=== PATIENT | female | born 1960 | race Caucasian/White ===

== ENCOUNTER → 2019-06-05 | Outpatient (CLI) | payer OTHER, SELFPAY ==
[2019-04-28 08:49] VITALS: BMI 36.9
[2019-06-05 18:03] LABS: Absolute Lymphocyte Count 2.96 X10^3/ul (0.83-4.51); Absolute Neutrophil Count 3.4 X10^3/uL (2.0-7.7); Basophil# 0.03 X10^3/uL; Basophil% 0.4 % (0-1); Eosinophil# 0.05 X10^3/uL; Eosinophils% 0.7 % (0-5); Hematocrit 44.6 % (37-47); Hemoglobin 14.7 g/dl (12.0-15.0); Lymphocyte # 2.96 X10^3/ul (4.0); Lymphocyte % 42.2 % (19-41); Mean Corpuscular Hgb 28.7 pg (27.0-32.0); Mean Corpuscular Volume 87.1 fL (81-99); Mean Platelet Vol. 10.4 fl (6.2-12.0); Monocyte% 8.5 % (0-10); Neutrophil # 3.38 X10^3/uL (2.7-7.7); Neutrophil % 48.2 % (47-70); Platelet Count 292 K/mm3 (150-450); RBC Distribution Width CV 14.1 % (11.6-14.6); RBC Distribution Width SD 44.9 fl (35.1-43.9); Red Blood Count 5.12 M/mm3 (4.2-5.4)
[2019-06-05 18:13] LABS: Anion Gap 6 (5-15); BUN 13 mg/dL (7-18); BUN/Creat Ratio 13.9 RATIO (10-20); Calcium,Total 9.1 mg/dL (8.5-10.1); Chloride 107 mmol/L (98-107); Creatinine, Serum 0.94 mg/dL (0.55-1.02); EST Glomerular Filtration Rate 65 mL/min (>60); Est Glom Filt Rate - Afr Amer 79 mL/min (>60); Glucose 85 mg/dL (74-106); Sodium Level 138 mmol/L (136-145); T4 Free Direct 1.69 ng/dL (0.76-1.46); Thyroid Stim Hormone (TSH) 1.88 uIU/mL (0.358-3.74)
[2019-06-05 18:28] LABS: POSITIVE COUNT NO; POSITIVE DIFFERENTIAL NO; POSITIVE MORPHOLOGY NO
== END | disposition home or self-care (01) ==
LOC: BFHLAB 16:23
PROVIDERS: PCP Family Medicine; Visit Provider Family Medicine
DX: R61 Generalized hyperhidrosis (principal); R53.83 Other fatigue
CPT/HCPCS: 36415; 80048; 84439; 84443; 85025

== ENCOUNTER → 2019-07-11 08:13 | Outpatient (CLI) | payer OTHER, SELFPAY ==
[2019-04-28 08:49] VITALS: BMI 36.9
--- NOTE | 2019-07-11 08:14 | RAD_ITS ---
STUDY: X-RAY - LEFT KNEE REASON FOR EXAM: Knee pain, no trauma. TECHNIQUE: 4 view(s) of the knee. COMPARISON: Radiographs 03/30/2016. FINDINGS: Normal visualized distal femur. Normal visualized proximal tibia and fibula. Normal proximal tibiofibular articulation. There are marginal osteophytes and severe joint space loss of the medial femorotibial compartment, increased since the prior study. There are marginal osteophytes without joint space narrowing of the lateral femorotibial compartment. There is severe joint space narrowing of the patellofemoral articulation as on the prior study. There is an intra-articular body in the suprapatellar recess. RAD/Knee 4 or More Views IMPRESSION: Arthrosis of the medial femorotibial and patellofemoral compartments. Intra-articular body. Electronically Signed: Herberth Lucas MD at 10:45 EDT Tel , Service support ,
== END ==
PROVIDERS: Family Provider Family Medicine; PCP Family Medicine; Referring Provider Orthopaedic Surgery; Visit Provider Orthopaedic Surgery
DX: M17.0 Bilateral primary osteoarthritis of knee (principal)
CPT/HCPCS: 73564

== ENCOUNTER → 2019-07-28 09:27 | Outpatient (CLI) | payer OTHER, SELFPAY ==
[2019-04-28 08:49] VITALS: BMI 36.9
[2019-07-11 08:31] VITALS: BMI 36.9
[2019-07-28 12:56] LABS: Free T3 2.9 pg/mL (2.18-3.98); T4 Free Direct 2.14 ng/dL (0.76-1.46); Thyroid Stim Hormone (TSH) 1.67 uIU/mL (0.358-3.74)
[2019-07-31 14:07] LABS: Thyroid Peroxidase AB 10 IU/mL (0-34)
[2019-08-01 10:02] LABS: Thyroglobulin Antibody < 1.0 IU/mL (0.0-0.9)
== END ==
PROVIDERS: Family Provider Family Medicine; PCP Family Medicine; Visit Provider Family Medicine
DX: E05.90 Thyrotoxicosis, unspecified without thyrotoxic crisis or storm (principal)
CPT/HCPCS: 36415; 84439; 84443; 84481; 86376; 86800

== ENCOUNTER → 2019-09-25 08:03 | Outpatient (CLI) | payer OTHER, SELFPAY ==
[2019-07-11 08:31] VITALS: BMI 36.9
[2019-09-01 07:56] VITALS: BMI 36.9
[2019-09-25 12:22] LABS: Free T3 2.7 pg/mL (2.18-3.98); Thyroid Stim Hormone (TSH) 1.85 uIU/mL (0.358-3.74)
== END ==
PROVIDERS: Family Provider Family Medicine; PCP Family Medicine; Visit Provider Family Medicine
DX: E05.90 Thyrotoxicosis, unspecified without thyrotoxic crisis or storm (principal); R61 Generalized hyperhidrosis; R53.83 Other fatigue
CPT/HCPCS: 36415; 84439; 84443; 84481

== ENCOUNTER 2020-11-23 13:42 | Emergency (ER) | payer OTHER, SELFPAY ==
[2020-04-23 14:28] VITALS: BMI 36.9
[2020-11-23 13:43] VITALS: BP 182/85; PULSE 104; RESP 20; TEMP 36.8; O2SAT 96; BMI 37.0
--- NOTE | 2020-11-23 13:53 | EKG12_ITS ---
Test Reason : CP Blood Pressure : / mmHG Vent. Rate : 088 BPM Atrial Rate : 088 BPM P-R Int : 140 ms QRS Dur : 088 ms QT Int : 364 ms P-R-T Axes : 028 -05 033 degrees QTc Int : 440 ms Normal sinus rhythm Normal ECG Confirmed by VIRGILIO BIRD, SARAH ([id number]), television news video editor ZULEMA AGUIRRE ([id number]) on 11/25/2020 8:46:54 AM Referred By: TELMA/KATE Confirmed By:SARAH POOLE MD
--- NOTE | 2020-11-23 13:54 | ED.VIS.GEN ---
History of Present Illness Chief Complaint: Chest Pain Informant: Patient Onset: Today Current Severity: Mild Maximum Severity: Moderate Narrative: Patient presents with right-sided pleuritic chest pain that she noted this morning. She states when she went to bed last night she felt fine. She does have a history of PE approximate 10 years ago. She states at that time she was 1 month out from surgery and they attributed the clot to her recent operative procedure. She has been off anticoagulants for the last 9 years without any difficulty. She denies any significant leg pain or swelling. She denies cough or congestion. - Past Medical History (1) Pulmonary embolism Status: Chronic Past Medical History - Allergies and Home Meds Allergies/Adverse Reactions: Allergies No Known Allergies Allergy (Verified 11/23/20 13:42) Primary Care Physician: Ned Maynard MD [Primary Care Provider] - Smoking Status: Never smoker Review of Systems General: Denies: Chills, Fever Eyes: Denies: Visual changes - bilaterally ENT: Denies: Bilateral ear pain Cardiovascular: Reports: Chest pain Respiratory: Denies: Dyspnea - Pain with deep breath, but does not feel short of breath. Gastrointestinal: Denies: Abdominal pain, Nausea, Vomiting, Diarrhea Musculoskeletal: Denies: Extremity Pain Skin: Denies: Rash Hematologic: Denies: Easy bruising, Easy bleeding Allergy: Denies: Uticaria Physical Exam Vital Signs/Narrative: Vital Signs Temp Pulse Resp BP Pulse Ox 11/23/20 13:43 98.2 F 104 H 20 H 182/85 H 96 Inital Vital Signs reviewed: Yes General: Well nourished, Well developed Head: Normocephalic ENT: Moist mucous membranes Neck: Supple Cardiovascular: Regular rate, Regular rhythm Respiratory: No distress, CTA bilaterally Abdomen: Soft, Nontender Back: Nontender Extremities: Nontender Skin: Normal color, No rash Neurological: Alert, Oriented x3, Normal Strength, Normal Sensation Psychological: Normal affect Diagnostic/Tx/Re-eval Chest X-Ray - ED: 1 View, Read by ED Physician, Chronic Changes Impressions Chest X-Ray 11/23/20 14:15 IMPRESSION: Nonacute portable x-ray examination of the chest. Electronically Signed: Imer Cooley MD ([place]) at 14:32 EST , Service support , Chest CTA 11/23/20 15:05 IMPRESSION: 1. No central or segmental pulmonary embolism. Electronically Signed: Imer Cooley MD (Brooks) at 15:49 EST , Service support , 11/23/20 14:15 Chest 1 View (Portable) [RAD] Stat 11/23/20 15:05 CTA Chest W/WO Contrast [CT] Stat Laboratory Results 11/23/20 11/23/20 11/23/20 14:05 14:05 14:05 WBC 7.4 RBC 4.76 Hgb 13.8 Hct 42.6 MCV 89.5 MCH 29.0 MCHC 32.4 RDW Std Deviation 44.4 H RDW Coeff of Tammie 13.5 Plt Count 302 MPV 9.8 Immature Gran % (Auto) 0.500 Neut % (Auto) 61.7 Lymph % (Auto) 29.3 [place] % (Auto) 6.6 Eos % (Auto) 1.2 Baso % (Auto) 0.7 Absolute Neuts (auto) 4.6 Absolute Lymphs (auto) 2.18 Nucleated RBC % 0 D-Dimer Quant (PE/DVT) 0.60 H* Sodium 144 Potassium 4.0 Chloride 112 H Carbon Dioxide 28.0 Anion Gap 4 L BUN 18 Creatinine 0.92 Estim Creat Clear Calc 59.98 Est GFR (MDRD) Af Amer 81 Est GFR (MDRD) Non-Af 67 BUN/Creatinine Ratio 19.6 Glucose 110 H Calcium 8.5 Troponin I < 0.015 - EKG Initial EKG Interpretation: Sinus Rhythm - Sinus 88 with no acute ischemia. - Medical Decision Making Patient was given 3 additional baby aspirin here. She had taken 1 this morning prior to arrival. 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 Vital signs been stable. Portable chest x-ray per my interpretation reveals chronic changes but no acute findings. EKG is unremarkable. Blood work is significant only for a mildly elevated D-dimer is 0.60. In light of this she was sent for a CTA of the chest. This returns unremarkable. Patient is reassured with the findings. Chest pain would be very atypical for cardiac etiology. She will try anti-inflammatories and monitor her symptoms. If she worsens in any way she was advised to return for repeat evaluation. She voices understanding and agreement. ED Disposition - Plan for ED Patient: Disposition: Home or Assisted Living Diagnosis: Pleuritic chest pain Instructions: ED Chest Pain, Noncardiac Referrals: Ned Maynard MD [Primary Care Provider] - 1 Week
[2020-11-23] MEDS: Aspirin 81 MG TAB.CHEW 243 MG PO (14:02)
[2020-11-23 14:08] VITALS: O2SAT 97
--- NOTE | 2020-11-23 14:15 | RAD_ITS ---
STUDY: X-RAY CHEST REASON FOR EXAM: Female, 60 years old. chest pain, acute onset. TECHNIQUE: AP COMPARISON: None. FINDINGS: EKG leads project over the chest. The lungs are clear and expanded. There is no demonstrated pleural abnormality. Normal size heart. Normal mediastinum and franc. Normal visualized pulmonary arteries. Normal visualized aortic arch and descending thoracic aorta. Normal visualized thoracic spine. Normal visualized ribs, clavicles, and shoulders. There is no demonstrated abnormality of the visualized soft tissue structures of the upper abdomen. RAD/Chest 1 View (Portable) IMPRESSION: Nonacute portable x-ray examination of the chest. Electronically Signed: Imer Cooley MD ([place]) at 14:32 EST , Service support ,
[2020-11-23 14:22] VITALS: PULSE 88; RESP 20; O2SAT 96
[2020-11-23 14:30] LABS: Absolute Lymphocyte Count 2.18 X10^3/uL (0.83-4.51); Absolute Neutrophil Count 4.6 X10^3/uL (2.0-7.7); Basophil# 0.05 X10^3/uL; Basophil% 0.7 % (0-1); Eosinophil# 0.09 X10^3/uL; Eosinophils% 1.2 % (0-5); Hematocrit 42.6 % (37-47); Hemoglobin 13.8 g/dL (12.0-15.0); Lymphocyte # 2.18 X10^3/ul (4.0); Lymphocyte % 29.3 % (19-41); Mean Corp Hgb Conc 32.4 g/dL (32-36); Mean Corpuscular Volume 89.5 fL (81-99); Mean Platelet Vol. 9.8 fl (6.2-12.0); Monocyte# 0.49 X10^3/uL; Monocyte% 6.6 % (0-10); NRBC Flagged by Analyzer 0 % (0-5); Neutrophil # 4.58 X10^3/uL (2.7-7.7); Neutrophil % 61.7 % (47-70); Platelet Count 302 K/mm3 (150-450); RBC Distribution Width CV 13.5 % (11.6-14.6); RBC Distribution Width SD 44.4 fl (35.1-43.9); Red Blood Count 4.76 M/mm3 (4.2-5.4); White Blood Count 7.4 K/mm3 (4.4-11.0)
[2020-11-23 14:35] LABS: Anion Gap 4 (5-15); BUN 18 mg/dL (7-18); BUN/Creat Ratio 19.6 RATIO (10-20); Calcium,Total 8.5 mg/dL (8.5-10.1); Chloride 112 mmol/L (98-107); Creatinine, Serum 0.92 mg/dL (0.55-1.02); EST Glomerular Filtration Rate 67 mL/min (>60); Est Glom Filt Rate - Afr Amer 81 mL/min (>60); Estimated Creatinine Clearance 59.98 ml/min; Glucose 110 mg/dL (74-106); Sodium Level 144 mmol/L (136-145)
--- NOTE | 2020-11-23 15:05 | CT_ITS ---
STUDY: CTA CHEST REASON FOR EXAM: Female, 60 years old. PLEURITIC CP WORSE WITH DEEP BREATHING, HX-PE RADIATION DOSAGE (If Supplied By Facility): CTDIvol = ( 13.75 ) mGy, DLP = ( 526.51 ) mGycm TECHNIQUE: The examination was performed with the intravenous administration of IV 100mL Isovue-370. Post-processing of the angiographic images was performed, with multiplanar reformation and 3D reconstruction. Individualized dose optimization techniques were used for this CT. COMPARISON: None. FINDINGS: Normal enhancement of the main pulmonary artery and right and left pulmonary arteries. Normal enhancement of the bilateral peripheral pulmonary arteries. There is no demonstrated pulmonary embolism. Normal thoracic aorta and visualized great vessels. There is no demonstrated aortic dissection. Normal heart and pericardium. Normal mediastinum. Normal hilar regions. Normal visualized trachea and bronchi. The lungs are well expanded. There are bandlike parenchymal changes most consistent with atelectasis of the bilateral lungs. Normal pleura. Normal chest wall structures. There are degenerative changes of thoracic spine. There is a small hiatal hernia. CT/CTA Chest W/WO Contrast IMPRESSION: 1. No central or segmental pulmonary embolism. Electronically Signed: Imer Cooley MD ([place]) at 15:49 EST , Service support ,
[2020-11-23 15:50] VITALS: BP 123/83; PULSE 75; RESP 17; O2SAT 98
[2020-11-23 16:05] VITALS: RESP 17
== END 2020-11-23 16:06 | disposition home or self-care (01) ==
PROVIDERS: Emergency Provider Emergency Medicine; PCP Family Medicine
DX: R07.81 Pleurodynia (principal); Z86.711 Personal history of pulmonary embolism; Z79.82 Long term (current) use of aspirin
CPT/HCPCS: 71045; 71275; 80048; 84484; 85025; 85379; 93005; 99285; Q9967; A4216

== ENCOUNTER 2020-12-05 15:02 | Inpatient (IN) | payer OTHER, SELFPAY ==
[2020-11-27 10:18] VITALS: BMI 36.2
[2020-12-05] VITALS (13 sets, daily range): BP systolic 135–160; BP diastolic 79–97; PULSE 85–134; RESP 18–29; TEMP 36.8–37.6; O2SAT 93–96; BMI 35.2; BMI 34.2; BMI 34.3
--- NOTE | 2020-12-05 15:16 | EKG12_ITS ---
Test Reason : TACHYCARDIA Blood Pressure : / mmHG Vent. Rate : 116 BPM Atrial Rate : 116 BPM P-R Int : 116 ms QRS Dur : 088 ms QT Int : 340 ms P-R-T Axes : 037 -34 058 degrees QTc Int : 472 ms Sinus tachycardia Left axis deviation Nonspecific ST abnormality Abnormal ECG Confirmed by VIRGILIO BIRD, SARAH ([id number]), managing editor YOSELIN BLANK ([id number]) on 12/11/2020 6:28:19 AM Referred By: YENNY Confirmed By:SARAH POOLE MD
--- NOTE | 2020-12-05 15:23 | ED.VIS.GEN ---
History of Present Illness Chief Complaint: Nausea/Vomiting Informant: Patient Onset: Days - 3 Narrative: Patient with nausea and vomiting for the past 3 days has been persistent. No hematemesis. Least 4 episodes today. Patient reports had Covid symptoms 10 days ago with low-grade fever chills and myalgias and slight cough. She reports lost taste and smell for a day and a half however that return. Slight diarrhea that has resolved. Last Tylenol use was 2 days ago. Denies any current cough or dyspnea symptoms. History of remote PE in the past currently on aspirin. Denies chest or abdominal pain. Denies any allergies. States has mild dysuria over the last 3 days. Denies any history of congestive heart failure. Prior similar symptoms: No Past Medical History - Allergies and Home Meds Allergies/Adverse Reactions: Allergies No Known Allergies Allergy (Verified 12/05/20 15:02) Past Medical History: - - Pulmonary embolism, Covid virus infection Surgical History: arthroscopy, knee, hysterectomy Smoking Status: Former smoker Review of Systems General: Denies: Chills, Fever, Sweats Eyes: Denies: Visual changes - bilaterally, Diplopia ENT: Denies: Rhinorrhea, Sore throat Cardiovascular: Denies: Chest pain, Palpitations Respiratory: Denies: Dyspnea, Cough, Dyspnea on exertion Gastrointestinal: Reports: Nausea, Vomiting. Denies: Abdominal pain, Diarrhea, Melena, Hematochezia Genitourinary: Denies: Dysuria, Hematuria, Frequency Musculoskeletal: Denies: Back pain, Extremity Pain Skin: Denies: Rash, Wounds Neurological: Denies: Headache, Weakness, Numbness Physical Exam Vital Signs/Narrative: Vital Signs Temp Pulse Resp BP Pulse Ox 12/05/20 15:06 98.2 F 132 H 23 H 150/97 H 93 12/05/20 15:03 98.2 F 132 H 29 H 150/97 H 93 General: Well nourished, Well developed, No Acute Distress Head: Normocephalic, Atraumatic Eyes: Perrl, EOMI ENT: No rhinorrhea, Dry mucous membranes Neck: Supple, Nontender Cardiovascular: Regular rhythm, No murmurs, Tachycardia Respiratory: No distress, CTA bilaterally, Chest nontender Abdomen: Soft, Nontender, Nondistended, Normal bowel sounds, - - Negative Membreno's McBurney's tenderness, no guarding or rebound. Back: Nontender, Normal Inspection Extremities: Nontender, No edema Skin: Normal color, No rash Neurological: Alert, Oriented x3, Cranial nerves II-XII grossly intact, Normal Strength, Normal Sensation Psychological: Normal affect, Normal Mood Diagnostic/Tx/Re-eval Clinical Impression(s) from Imaging Studies Chest X-Ray 12/05/20 17:05 IMPRESSION: 1. Interval appearance of mild patchy consolidation of the bilateral lower lobes. A trace left pleural effusion is also present. Electronically Signed: Evan Wade MD at 17:34 EST , Service support , Abnormal Lab Results 12/05/20 12/05/20 12/05/20 15:17 15:17 15:17 WBC 21.4 H RBC 5.47 H Hgb 15.8 H Hct 46.9 MCV 85.7 MCH 28.9 MCHC 33.7 RDW Std Deviation 43.4 RDW Coeff of Tammie 13.6 Plt Count 407 MPV 10.5 Immature Gran % (Auto) 1.300 H Neut % (Auto) 82.8 H Lymph % (Auto) 6.4 L [place] % (Auto) 4.7 Eos % (Auto) 4.5 Baso % (Auto) 0.3 Absolute Neuts (auto) 17.7 H Absolute Lymphs (auto) 1.36 Nucleated RBC % 0 Differential Comment SCANNED PT 13.0 INR 1.0 APTT 27.0 Sodium 138 Potassium 2.9 L Chloride 98 Carbon Dioxide 30.0 Anion Gap 10 BUN 37 H Creatinine 1.13 H Estim Creat Clear Calc 48.83 Est GFR (MDRD) Af Amer 63 Est GFR (MDRD) Non-Af 52 L BUN/Creatinine Ratio 32.7 H Glucose 113 H Lactic Acid Calcium 9.5 Magnesium Total Bilirubin 0.90 AST 38 H ALT 37 Alkaline Phosphatase 82 Total Protein 8.3 H Albumin 3.4 Globulin 4.9 H Albumin/Globulin Ratio 0.7 L 12/05/20 12/05/20 15:17 15:17 WBC RBC Hgb Hct MCV MCH MCHC RDW Std Deviation RDW Coeff of Tammie Plt Count MPV Immature Gran % (Auto) Neut % (Auto) Lymph % (Auto) [place] % (Auto) Eos % (Auto) Baso % (Auto) Absolute Neuts (auto) Absolute Lymphs (auto) Nucleated RBC % Differential Comment PT INR APTT Sodium Potassium Chloride Carbon Dioxide Anion Gap BUN Creatinine Estim Creat Clear Calc Est GFR (MDRD) Af Amer Est GFR (MDRD) Non-Af BUN/Creatinine Ratio Glucose Lactic Acid 2.9 H* Calcium Magnesium 2.8 H Total Bilirubin AST ALT Alkaline Phosphatase Total Protein Albumin Globulin Albumin/Globulin Ratio - EKG Initial EKG Interpretation: Sinus Rhythm - Sinus tachycardia rate of 116, no ST or T wave changes. - Medical Decision Making Patient tachycardic on arrival dry mucosal membranes. Sepsis protocol initiated due to dysuria symptoms with tachycardia. EKG is sinus rhythm. She is given 2 L of fluid heart rate of 134 on the monitor. She has no heart failure history. Work-up white count of 21 there is some lymphopenia. Known Covid infection diagnosed 8 years ago with 10 days of symptoms. She was 93% on room air on arrival placed on oxygen by nursing. 1 view chest x-ray reviewed by myself and read by radiology concerns for new bilateral lower lobe infiltrates. Clinically she states her cough is improving. Lactic acid returned at 2.9. She meets severe sepsis criteria with fluids running her heart rate significantly improved blood pressure stable. Pending urine, she does have dysuria, with her white count severe sepsis she started on Zosyn. Creatinine 1.13 her potassium was 2.9 sent for a magnesium level she is able to take oral potassium. Patient meeting severe sepsis I spoke with hospitalist, Dr. Call, will start Decadron due to slightly decreased pulse ox with known Covid infection. We will add a D-dimer for further evaluation. Will admit to Covid floor for further management. ED Disposition - Plan for ED Patient: Disposition: Acute Care [facility] Diagnosis: Severe sepsis, COVID-19 virus infection, Hypokalemia
[2020-12-05 15:45] LABS: Absolute Lymphocyte Count 1.36 X10^3/uL (0.83-4.51); Absolute Neutrophil Count 17.7 X10^3/uL (2.0-7.7); Basophil# 0.06 X10^3/uL; Basophil% 0.3 % (0-1); Eosinophil# 0.96 X10^3/uL; Eosinophils% 4.5 % (0-5); Hematocrit 46.9 % (37-47); Hemoglobin 15.8 g/dL (12.0-15.0); Lymphocyte # 1.36 X10^3/ul (4.0); Lymphocyte % 6.4 % (19-41); Mean Corp Hgb Conc 33.7 g/dL (32-36); Mean Corpuscular Hgb 28.9 pg (27.0-32.0); Mean Corpuscular Volume 85.7 fL (81-99); Mean Platelet Vol. 10.5 fl (6.2-12.0); Monocyte% 4.7 % (0-10); NRBC Flagged by Analyzer 0 % (0-5); Neutrophil # 17.71 X10^3/uL (2.7-7.7); Neutrophil % 82.8 % (47-70); POSITIVE MORPHOLOGY YES; Platelet Count 407 K/mm3 (150-450); RBC Distribution Width CV 13.6 % (11.6-14.6); RBC Distribution Width SD 43.4 fl (35.1-43.9); Red Blood Count 5.47 M/mm3 (4.2-5.4); White Blood Count 21.4 K/mm3 (4.4-11.0)
[2020-12-05 15:49] LABS: Differential Indicated SCAN CRITERIA MET
[2020-12-05] MEDS: 0.9% Normal Saline 1,000 ML 999 ML IV ×2 (15:57→17:27)
[2020-12-05] MEDS: Ondansetron 4 MG/2 ML Vial IV (15:57)
[2020-12-05 16:02] LABS: ALB/GLOB Ratio 0.7 RATIO (0.9-2.4); AST(SGOT) 38 U/L (15-37); Alanine Aminotransfer ALT/SGPT 37 U/L (13-56); Albumin, Serum 3.4 g/dL (3.2-5.0); Alkaline Phosphatase 82 U/L (45-117); Anion Gap 10 (5-15); BUN 37 mg/dL (7-18); BUN/Creat Ratio 32.7 RATIO (10-20); Calcium,Total 9.5 mg/dL (8.5-10.1); Chloride 98 mmol/L (98-107); Creatinine, Serum 1.13 mg/dL (0.55-1.02); EST Glomerular Filtration Rate 52 mL/min (>60); Est Glom Filt Rate - Afr Amer 63 mL/min (>60); Estimated Creatinine Clearance 48.83 ml/min; Globulin 4.9 g/dL (2.2-4.2); Glucose 113 mg/dL (74-106); Potassium 2.9 mmol/L (3.5-5.1); Protein, Total 8.3 g/dL (6.4-8.2); Sodium Level 138 mmol/L (136-145)
[2020-12-05 16:29] LABS: Differential Comment SCANNED
[2020-12-05 16:30] LABS: Lactic Acid 2.9 mmol/L (0.4-1.9)
--- NOTE | 2020-12-05 17:05 | RAD_ITS ---
STUDY: X-RAY CHEST REASON FOR EXAM: Female, 60 years old. PT C/O INCREASING NAUSEA AND VOMITING WITH SYMPTOMS STARTING ONE 11/25/20, DIAGNOSED WITH COVID 11/27/20 TECHNIQUE: Single AP portable view of the chest. COMPARISON: November 23, 2020 FINDINGS: Interval appearance of mild patchy consolidation of the bilateral lower lobes. A trace left pleural effusion is also present. Normal size heart. Normal mediastinum and franc. Normal visualized pulmonary arteries. Normal visualized aortic arch and descending thoracic aorta. Normal visualized thoracic spine. Normal visualized ribs, clavicles, and shoulders. There is no demonstrated abnormality of the visualized soft tissue structures of the upper abdomen. RAD/Chest 1 View (Portable) IMPRESSION: 1. Interval appearance of mild patchy consolidation of the bilateral lower lobes. A trace left pleural effusion is also present. Electronically Signed: Evan Wade MD at 17:34 EST , Service support ,
[2020-12-05 17:43] LABS: Magnesium 2.8 mg/dL (1.6-2.6)
--- NOTE | 2020-12-05 18:37 | HP.PCM_ITS ---
Problem List (1) Hypoxia Status: Acute (2) Pneumonia due to COVID-19 virus Status: Acute (3) History of pulmonary embolism Status: Chronic (4) Hypertension Status: Chronic Qualifiers: Hypertension type: essential hypertension Qualified Code(s): I10 - Essential (primary) hypertension (5) Chronic kidney disease (CKD), stage III (moderate) Status: Chronic Qualifiers: Chronic kidney disease stage 3 subtype: unspecified whether 3a or 3b Qualified Code(s): N18.30 - Chronic kidney disease, stage 3 unspecified History of Present Illness Date of Admission: 12/05/20 Chief Complaint: COVID +, intractable N/V The patient is a 60 y/o F w/ PMHx: CKD stage III, Hx PE, HTN who presents to the [facility] ED on 12/05/20 with history of recent Covid diagnosis with approximately 10 days prior onset of low-grade fevers, chills, myalgias, mild cough, alteration to sense of taste and smell, loose stools with now onset significant and persistent nausea and emesis over the last 3 days with no associated abdominal pain but complaining of mild dysuria prompting eventual ED presentation. Patient denies any specific cough or dyspnea symptoms at this time. Patient does state that her , daughter and her grandson who is 8 years old and has a history of being a are also mildly symptomatic currently and strongly encouraged early discussions with her primary caregivers especially with her grandson given his preemie history. Work-up in the ED included T 98.2, heart rate 132, BP 150/97, respiratory rate 29, 93% on room air, CBC with WBC 21.4, hemoglobin 15.8, platelet 407 with left shift, unremarkable coags, CMP with potassium 2.9, BUN/creatinine 37/1.13, glucose 113, lactic acid 2.9, total bilirubin 0.90, AST/LT 38/37, alk phos 82, blood culture x2 pending per ED, chest x-ray interval appearance of mild patchy consolidation bilateral lower lobes with trace left pleural effusion, EKG ST without acute evidence of ischemia, UA requested per ED. Past Medical History Past Medical History (Chronic Problems): Chronic Problems (Last Reviewed 11/01/17 @ 10:48 by Judd Banegas) Pulmonary embolism (Chronic) History of pulmonary embolism (Chronic) Hypertension (Chronic) Chronic kidney disease (CKD), stage III (moderate) (Chronic) Allergies No Known Allergies Allergy (Verified 12/05/20 15:02) Home Medications: Ambulatory Orders Medication Instructions Recorded Ascorbic Acid [Vitamin C] 1,000 mg PO DAILY 07/16/17 Aspirin E.C. 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 Smoking Status: Never smoker - Patient denies any tobacco use history. Tobacco Use: Non-smoker Alcohol: None Drugs: None - *Family History Maternal History Items: Cancer - Maternal family history of breast cancer., Diabetes, Heart Disease Paternal History Items: Heart Disease Review of Systems Constitutional: Reports: Anorexia, Chills, Fever, Malaise, Weakness, Fatigue. Denies: Weight Change HEENT: Reports: Head Aches, - - Alteration to sense of taste/smell.. Denies: Sinus Congestion, Sinus Drainage Cardiovascular: Denies: Chest Pain, Palpitations Respiratory: Denies: Cough, Shortness of Breath, Shortness of breath at rest, Shortness of breath upon exertion, Sputum production Gastrointestinal: Reports: Diarrhea, Nausea, Vomiting. Denies: Abdominal Pain Genitourinary: Reports: Dysuria Musculoskeletal: Reports: Joint Pain, Muscle pain. Denies: Joint Tenderness Skin: Denies: Rash, Wounds Neurological: Denies: Numbness, Tingling, Focal weakness Psychiatric: Denies: Anxiety, Depression, Homicidal Ideations, Suicidal Ideations Hematologic/ Lymphatic: Denies: Easy Bruising, Easy Bleeding VTE Information - Inpt Only VTE Present on Admission: No VTE Mechan Device Prophylaxis: SCD's VTE Pharm Prophylaxis ordered?: Yes Patient Problems: Active and Suspected Problems (Last Reviewed 11/01/17 @ 10:48 by Judd Banegas) Severe sepsis (Acute) COVID-19 virus infection (Acute) Hypokalemia (Acute) Hypoxia (Acute) Pneumonia due to COVID-19 virus (Acute) Subjective: Patient seated upright in the ED bed, fatigued appearing, oxygenation remains low 90s, heart rate is improved following 2 L normal saline. Objective: Physical Examination: General: awake, alert, oriented x 3 and cooperative, seated upright in the ED bed, fatigued and ill-appearing. Skin: normal color, turgor, no icterus, cyanosis. HEENT: AT/NC, EOMI, PERRLA, dry MM, no carotid bruits or JVD noted. Lungs: Diminished breath sounds throughout, greater bases, moderate effort, no evidence of distress, no rales, ronchi or wheezing. Heart: Improved, previously significantly tachycardic, regular rhythm; no gallop, rub audible. Abdomen: soft, obese, NTTP, ND, normal BS, no HSM. Extremities: no cyanosis, clubbing, or edema. Neurological: patient awake, alert, oriented as noted; cognitive function intact; pupils equally reactive to light and accomodation; cranial nerves II-XII grossly normal, moving all 4 extremities, no focal deficits, strength moderately to severely globally decreased secondary to acute presentation. Psychiatric: affect appears fatigued, ill-appearing, no acute evidence of depressive or anxiety feelings. - Physical Exam Vitals/I&O's: Vital Signs Temp Pulse Resp BP Pulse Ox 98.9 F 87 21 H 160/85 H 96 12/05/20 17:16 12/05/20 17:06 12/05/20 17:06 12/05/20 17:06 12/05/20 17:06 Oxygen Flow Rate (L/min) 1 Oxygen Delivery Method Nasal Cannula Weight: 211 lb 10.3 oz Body Mass Index (BMI) 35.2 Intake and Output for Last 24 Hours 12/03/20 12/04/20 12/05/20 23:59 23:59 23:59 Intake Total 1000 / 1000 Balance 1000 / 1000 Laboratory Results 12/05/20 15:17: WBC 21.4 H, RBC 5.47 H, Hgb 15.8 H, Hct 46.9, MCV 85.7, MCH 28.9, MCHC 33.7, RDW Std Deviation 43.4, RDW Coeff of Tammie 13.6, Plt Count 407, MPV 10.5, Immature Gran % (Auto) 1.300 H, Neut % (Auto) 82.8 H, Lymph % (Auto) 6.4 L, [place] % (Auto) 4.7, Eos % (Auto) 4.5, Baso % (Auto) 0.3, Absolute Neuts (auto) 17.7 H, Absolute Lymphs (auto) 1.36, Nucleated RBC % 0, Differential Comment SCANNED 12/05/20 15:17: PT 13.0, INR 1.0, APTT 27.0 12/05/20 15:17: Sodium 138, Potassium 2.9 L, Chloride 98, Carbon Dioxide 30.0, Anion Gap 10, BUN 37 H, Creatinine 1.13 H, Estim Creat Clear Calc 48.83, Est GFR (MDRD) Af Amer 63, Est GFR (MDRD) Non-Af 52 L, BUN/Creatinine Ratio 32.7 H, Glucose 113 H, Calcium 9.5, Total Bilirubin 0.90, AST 38 H, ALT 37, Alkaline Phosphatase 82, Total Protein 8.3 H, Albumin 3.4, Globulin 4.9 H, Albumin /Globulin Ratio 0.7 L 12/05/20 15:17: Lactic Acid 2.9 H* 12/05/20 15:17: Magnesium 2.8 H Current Medications Piperacillin Sod/Tazobactam (Sod 3.375 gm/ Sodium Chloride) 50 mls @ 100 mls/hr IV X1 ONE Stop: 12/05/20 18:54 Assessment/Plan All Active Problems (Last Reviewed 11/01/17 @ 10:48 by Judd Banegas) Severe sepsis (Acute) COVID-19 virus infection (Acute) Hypokalemia (Acute) Hypoxia (Acute) Pneumonia due to COVID-19 virus (Acute) Screen for colon cancer (Acute) The patient is a 60 y/o F w/ PMHx: CKD stage III, Hx PE, HTN who presents to the [facility] ED on 12/05/20 with history of recent Covid diagnosis with approximately 10 days prior onset of low-grade fevers, chills, myalgias, mild cough, alteration to sense of taste and smell, loose stools with now onset significant and persistent nausea and emesis over the last 3 days with no associated abdominal pain but complaining of mild dysuria prompting eventual ED presentation. 1. Acute Severe Sepsis secondary to Acute Hypoxia secondary to BL Pneumonia secondary to Acute Viral Syndrome, COVID-19 with concurrent intractable nausea and emesis and Possible Acute UTI: Will admit to the COVID unit, will maintain on oxygen with wean as tolerated to room air, PRN albuterol, HOB, ED administered Zosyn which will be continued but de-escalate once UCx results, IS parameters w/ pending sputum cultures, respiratory viral panel and urine antigens, will obtain procalcitonin, CRP, CPK, Ferritin, LDH, trop, BNP, D- dimer, continue supportive care including q 2 hour turning including prone given no prone bed availability and judicious hydration, closely monitor for worsening status for ARDS and multiorgan failure, consult Infectious disease, initiate IV Decadron 6 mg daily x 10 doses, initiate Remdesivir given worsening presentation but defer to discretion of ID, trend LA per facility protocol, pending urinalysis per ED and in the interim will maintain on Rocephin therapy but de- escalate off if unremarkable, ED dosed with Zosyn. 2. Hypokalemia: Admission K+ 2.9, magnesium level requested, supplementation given, repeat level in AM. 3. History of pulmonary embolism: Patient only on aspirin therapy currently, given acute presentation with high risk for VTE given #1 D-dimer requested, would obtain CTPA if appropriate. 4. Chronic Kidney Disease Stage III: Admission BUN/Cr 37/1.13, baseline renal function 0.9, repeat BMP in AM. 5. Hypertension: Continue home regimen including clonidine with hold parameters, PRN hydralazine. 6. DVT Prophylaxis: SCDs, therapeutic lovenox pending further evaluation given high risk for clots and prior history. 7. CODE status: Patient does not have healthcare power of repossession agent nor living will set up. Discussed concept of setting these up and purpose to do so. Patient is interested and referred her discuss these items with case management/social work. Given acute presentation discussed CODE status at length including difference between FULL code, DNR-CCA and DNR-CC status. Following discussions about the differences in these status, requested Full Code status. Advanced Care Planning Face to Face Time: 16 minutes. Inpatient E&M: 73209 Init Hosp L3 Procedures: 25044 Advncd Care Plan 30 Min
[2020-12-05] MEDS: dexAMETHasone 4 MG/ML Vial 6 MG IV (18:58)
[2020-12-05 19:17] LABS: Bacteria 0 SEEN /hpf (None Seen); Mucous, Urine 0 SEEN /hpf (<or=2+); White Blood Cells 0 SEEN /hpf (0-5)
[2020-12-05 19:31] LABS: Reflex Lactate? Y
[2020-12-05 20:00] LABS: D-Dimer Quantitative (DVT/PE) 3.34 FEU/ug/m (0.27-0.49)
[2020-12-05 20:07] LABS: Color, Urine Yellow (Yellow); Glucose, Dipstick Normal (Normal); Leukocyte Esterase-Dipstick Negative /ul (Negative); Nitrite-Dipstick Negative (Negative); Occult Blood-Urine 50 /ul (Negative); Protein-Dipstick 100 mg/dl (Negative); Urine Bilirubin Dipstick Negative (Negative); Urine Clarity Sl. Cloudy (Clear); Urine Urobilinogen 1 mg/dl (Normal)
[2020-12-05 20:15] LABS: BNP,B-Type NATRIURETIC PEPTIDE 12.2 pg/mL (0-100)
--- NOTE | 2020-12-05 20:15 | CT_ITS ---
STUDY: CTA CHEST REASON FOR EXAM: Female, 60 years old. ELEVATED D-DIMER, COVID, HYPOXIA, H/O PE. RADIATION DOSAGE (If Supplied By Facility): CTDIvol = ( 14.43 ) mGy, DLP = ( 651.06 ) mGycm TECHNIQUE: The examination was performed with the intravenous administration of IV-100 ML ISOVUE 370. Post-processing of the angiographic images was performed, with multiplanar reformation and 3D reconstruction. Individualized dose optimization techniques were used for this CT. COMPARISON: CTA of the chest dated November 23, 2020 FINDINGS: Mild scattered pneumonic infiltrates are present throughout both lungs, which were not present on the prior study. Normal enhancement of the main pulmonary artery and right and left pulmonary arteries. Normal enhancement of the bilateral peripheral pulmonary arteries. There is no demonstrated pulmonary embolism. Normal thoracic aorta and visualized great vessels. There is no demonstrated aortic dissection. Normal heart size and pericardium. Normal mediastinum. Normal hilar regions. Normal visualized trachea and bronchi. Normal pleura. Normal chest wall structures. Normal osseous structures. Normal visualized upper abdomen. CT/CTA Chest W/WO Contrast IMPRESSION: 1. Interval development of mild bilateral multifocal pneumonic infiltrates. 2. No demonstrated pulmonary embolism or arterial dissection. Electronically Signed: Evan Wade MD at 21:25 EST , Service support ,
[2020-12-05 20:16] LABS: Ferritin 798 ng/mL (8-252); LDH 396 U/L (84-246); Magnesium 2.7 mg/dL (1.6-2.6)
[2020-12-05 20:21] LABS: Procalcitonin 0.17 ng/mL (0.00-0.09)
[2020-12-05 20:23] LABS: Ketone-Dipstick 150 mg/dl (Negative)
[2020-12-05 20:25] LABS: Amorphous Sediment 1+ URATE; Red Blood Cells-Urine 5-10 SEEN /hpf (0-5); Squamous Epithelial Cells - UA 0-5 SEEN /hpf (5-10)
[2020-12-05 21:02] LABS: Lactic Acid 1.5 mmol/L (0.4-1.9)
[2020-12-05] MEDS: 0.9% Normal Saline 1,000 ML 100 ML IV (21:32)
[2020-12-05] MEDS: Ceftriaxone 1 GM/50 ML BAG IV (21:33)
[2020-12-05] MEDS: cloNIDine HCl 0.1 MG Tablet PO (21:37)
[2020-12-05] MEDS: Enoxaparin 100 MG/ML Syringe SC (21:37)
[2020-12-05] MEDS: BENZOCAINE/MENTHOL 1 LOZENGE MUCOUS MEM (22:04)
[2020-12-05] MEDS: Acetaminophen 325 MG Tablet 650 MG PO (22:04)
[2020-12-05 23:06] LABS: M R Staph aureus DNA By PCR Negative (Negative); Probe Check PASS; Specimen Processing Control PASS
[2020-12-06] VITALS (12 sets, daily range): BP systolic 113–149; BP diastolic 72–75; PULSE 60–80; RESP 18–20; TEMP 36.9–37.5; O2SAT 88–94
[2020-12-06 06:59] LABS: Absolute Lymphocyte Count 1.05 X10^3/uL (0.83-4.51); Absolute Neutrophil Count 15.2 X10^3/uL (2.0-7.7); Basophil# 0.03 X10^3/uL; Basophil% 0.2 % (0-1); Hemoglobin 12.5 g/dL (12.0-15.0); Lymphocyte # 1.05 X10^3/ul (4.0); Lymphocyte % 6.2 % (19-41); Mean Corp Hgb Conc 32.1 g/dL (32-36); Mean Corpuscular Hgb 28.5 pg (27.0-32.0); Mean Platelet Vol. 10.6 fl (6.2-12.0); Monocyte# 0.65 X10^3/uL; Monocyte% 3.8 % (0-10); NRBC Flagged by Analyzer 0 % (0-5); Neutrophil # 15.16 X10^3/uL (2.7-7.7); Neutrophil % 88.7 % (47-70); Platelet Count 302 K/mm3 (150-450); RBC Distribution Width CV 14.1 % (11.6-14.6); RBC Distribution Width SD 46.4 fl (35.1-43.9); Red Blood Count 4.38 M/mm3 (4.2-5.4); White Blood Count 17.1 K/mm3 (4.4-11.0)
[2020-12-06 07:26] LABS: ALB/GLOB Ratio 0.8 RATIO (0.9-2.4); AST(SGOT) 67 U/L (15-37); Alanine Aminotransfer ALT/SGPT 53 U/L (13-56); Albumin, Serum 2.4 g/dL (3.2-5.0); Alkaline Phosphatase 74 U/L (45-117); Anion Gap 7 (5-15); BUN 21 mg/dL (7-18); BUN/Creat Ratio 29.6 RATIO (10-20); Calcium,Total 7.7 mg/dL (8.5-10.1); Chloride 110 mmol/L (98-107); Creatinine, Serum 0.71 mg/dL (0.55-1.02); EST Glomerular Filtration Rate 90 mL/min (>60); Est Glom Filt Rate - Afr Amer 109 mL/min (>60); Estimated Creatinine Clearance 77.72 ml/min; Globulin 3.1 g/dL (2.2-4.2); Glucose 95 mg/dL (74-106); Potassium 3.6 mmol/L (3.5-5.1); Protein, Total 5.5 g/dL (6.4-8.2); Sodium Level 144 mmol/L (136-145)
--- NOTE | 2020-12-06 08:22 | PN_ITS ---
Patient Problems: Active and Suspected Problems (Last Reviewed 11/01/17 @ 10:48 by Judd Banegas) Severe sepsis (Acute) COVID-19 virus infection (Acute) Hypokalemia (Acute) Hypoxia (Acute) Pneumonia due to COVID-19 virus (Acute) Reason for Visit: Acute COVID-19 infection Subjective: Patient is a 60-year-old lady diagnosed with COVID-19 on 11/27/2020 who presented with persistent nausea and vomiting with associated abdominal pain. Imaging studies obtained on admission demonstrated Interval development of mild bilateral multifocal pneumonic infiltrates. Admitted for subsequent inpatient management. Objective: GENERAL: cooperative HEENT: Atraumatic; EYES; Anicteric, Normal Conjunctiva NECK; supple, normal thyroid, RESPIRATORY: Diminished to auscultation CARDIOVASCULAR: Regular S1 S2, GI: soft, normoactive bowel sounds, : No Renal angle tenderness; EXTREMITIES: No edema, no clubbing, MUSCULOSKELETAL: no muscle waisting NEURO: Awake; no lateralizing signs. SKIN: No Rash PSYCH; Flat affect Vitals/I&O's: Vital Signs Temp Pulse Resp BP Pulse Ox 99.0 F 68 20 H 113/72 92 12/06/20 05:01 12/06/20 05:59 12/06/20 05:01 12/06/20 05:01 12/06/20 05:01 Oxygen Flow Rate (L/min) 2 Oxygen Delivery Method Nasal Cannula Weight: 94.7 kg Body Mass Index (BMI) 34.2 Intake and Output for Last 24 Hours 12/04/20 12/05/20 12/06/20 23:59 23:59 23:59 Intake Total 2220 / 2220 250 / 250 Balance 2220 / 2220 250 / 250 Microbiology Past 72 Hours 12/05/20 20:30 Mucosa - Nasopharyngeal Respiratory Panel (PCR) - Final 12/05/20 19:05 Urine, Clean Catch Streptococcus pneumoniae Antigen (M - Final 12/05/20 19:05 Urine, Clean Catch Legionella Antigen - Final Laboratory Results 12/05/20 15:17: WBC 21.4 H, RBC 5.47 H, Hgb 15.8 H, Hct 46.9, MCV 85.7, MCH 28.9, MCHC 33.7, RDW Std Deviation 43.4, RDW Coeff of Tammie 13.6, Plt Count 407, MPV 10.5, Immature Gran % (Auto) 1.300 H, Neut % (Auto) 82.8 H, Lymph % (Auto) 6.4 L, [place] % (Auto) 4.7, Eos % (Auto) 4.5, Baso % (Auto) 0.3, Absolute Neuts ( auto) 17.7 H, Absolute Lymphs (auto) 1.36, Nucleated RBC % 0, Differential Comment SCANNED 12/05/20 15:17: PT 13.0, INR 1.0, APTT 27.0 12/05/20 15:17: Sodium 138, Potassium 2.9 L, Chloride 98, Carbon Dioxide 30.0, Anion Gap 10, BUN 37 H, Creatinine 1.13 H, Estim Creat Clear Calc 48.83, Est GFR (MDRD) Af Amer 63, Est GFR (MDRD) Non-Af 52 L, BUN/Creatinine Ratio 32.7 H, Glucose 113 H, Calcium 9.5, Total Bilirubin 0.90, AST 38 H, ALT 37, Alkaline Phosphatase 82, Total Protein 8.3 H, Albumin 3.4, Globulin 4.9 H, Albumin/Globulin Ratio 0.7 L 12/05/20 15:17: Lactic Acid 2.9 H* 12/05/20 15:17: Magnesium 2.8 H 12/05/20 15:17: D-Dimer Quant (PE/DVT) 3.34 H* 12/05/20 15:17: Magnesium 2.7 H, Ferritin 798 H, Lactate Dehydrogenase 396 H, Troponin I < 0.015, C-React Prot Ext Range 158.00 H 12/05/20 15:17: B-Natriuretic Peptide 12.2 12/05/20 15:17: Procalcitonin 0.17 H 12/05/20 19:05: Urine Color Yellow, Urine Clarity Sl. Cloudy, Urine pH 6.0, Ur Specific Millen 1.020, Urine Protein 100 H, Urine Glucose (UA) Normal, Urine Ketones 150 H, Urine Occult Blood 50 H, Urine Nitrite Negative, Urine Bilirubin Negative, Urine Urobilinogen 1 H, Ur Leukocyte Esterase Negative, Urine RBC 5-10 SEEN, Urine WBC 0 SEEN, Ur Squamous Epith Cells 0-5 SEEN, Amorphous Sediment 1+ URATE, Urine Bacteria 0 SEEN, Urine Mucus 0 SEEN 12/05/20 20:23: Lactic Acid 1.5 12/05/20 21:45: MRSA (PCR) Negative 12/06/20 06:00: Sodium 144, Potassium 3.6, Chloride 110 H, Carbon Dioxide 27.0, Anion Gap 7, BUN 21 H, Creatinine 0.71, Estim Creat Clear Calc 77.72, Est GFR (MDRD) Af Amer 109, Est GFR (MDRD) Non-Af 90, BUN/Creatinine Ratio 29.6 H, Glucose 95, Calcium 7.7 L, Total Bilirubin 0.50, AST 67 H, ALT 53, Alkaline Phosphatase 74, Total Protein 5.5 L, Albumin 2.4 L, Globulin 3.1, Albumin/Globulin Ratio 0.8 L 12/06/20 06:00: WBC 17.1 H, RBC 4.38, Hgb 12.5, Hct 39.0, MCV 89.0, MCH 28.5, MCHC 32.1, RDW Std Deviation 46.4 H, RDW Coeff of Tammie 14.1, Plt Count 302, MPV 10.6, Immature Gran % (Auto) 1.100 H, Neut % (Auto) 88.7 H, Lymph % (Auto) 6.2 L , [place] % (Auto) 3.8, Eos % (Auto) 0.0, Baso % (Auto) 0.2, Absolute Neuts (auto) 15.2 H, Absolute Lymphs (auto) 1.05, Nucleated RBC % 0 Current Medications Acetaminophen (Acetaminophen 325 Mg Tablet) 650 mg PO Q6H PRN PRN PRN Reason: Pain Score 1-10/Temp > 100.7 F Last Admin: 12/05/20 22:04 Dose: 650 mg Documented by: Al Hydroxide/Mg Hydroxide (Mag Hydrox/Al Hydrox/Simeth 30 Ml Udc) 30 ml PO Q6H PRN PRN PRN Reason: Gastric Burning Albuterol Sulfate (Albuterol Sulfate 8 Gm Inhaler (60 Puffs)) 4 - 8 puff INHALATION Q4H PRN PRN PRN Reason: Dyspnea, wheezing Aspirin (Aspirin E.C. 81 Mg Tablet) 81 mg PO DAILY [facility] Clonidine (Clonidine Hcl 0.1 Mg Tablet) 0.1 mg PO QHS [facility] Last Admin: 12/05/20 21:37 Dose: 0.1 mg Documented by: Dexamethasone Sodium Phosphate (Dexamethasone 4 Mg/Ml Vial) 6 mg IV DAILY [facility] Stop: 12/15/20 10:01 Enoxaparin Sodium (Enoxaparin 100 Mg/Ml Syringe) 100 mg SC BID [facility] Last Admin: 12/05/20 21:37 Dose: 100 mg Documented by: Famotidine (Famotidine 20 Mg Tablet) 20 mg PO DAILY [facility] Guaifenesin (Guaifenesin 10 Ml Udc (200mg/10ml)) 20 ml PO Q4H PRN PRN PRN Reason: COUGH Hydralazine HCl (Hydralazine 20 Mg/Ml Vial) 10 mg IV Q4H PRN PRN PRN Reason: SBP > 160 Ceftriaxone Sodium (Rocephin) 1 gm in 50 mls @ 100 mls/hr IV DAILY@2200 [facility] Last Infusion: 12/05/20 22:03 Dose: Infused Documented by: Sodium Chloride () 250 mls @ 15 mls/hr IV .[id number] PRN PRN Reason: Saline Flush Sodium Chloride () 250 mls @ 15 mls/hr IV .[id number] PRN PRN Reason: Additional IVPB Infusion Remdesivir 100 mg/ Sodium (Chloride) 250 mls @ 125 mls/hr IV DAILY@2200 [facility] Stop: 12/09/20 23:59 Ibuprofen (Ibuprofen 400 Mg Tablet) 400 mg PO Q4H PRN PRN PRN Reason: Pain Score 1-10/Temp > 100.7 F Magnesium Hydroxide (Magnesium Hydroxide 30 Ml Udc) 30 ml PO DAILY PRN PRN PRN Reason: Constipation Melatonin (Melatonin 3 Mg Tablet) 3 mg PO QHS PRN PRN PRN Reason: INSOMNIA Nutritional Formula (Lactose Free) (Ensure Enlive 120 Ml Liquid) 120 ml PO 4X/DAY [facility] Last Admin: 12/05/20 21:43 Dose: 120 ml Documented by: Ondansetron HCl (Ondansetron 4 Mg/2 Ml Vial) 4 mg IV Q8H PRN PRN PRN Reason: NAUSEA/VOMITING Prochlorperazine Edisylate (Prochlorperazine 10 Mg/2 Ml Vial) 5 mg IV Q4H PRN PRN PRN Reason: Breakthrough Nausea/Vomiting Psyllium Hydrophilic Mucilloid (Psyllium 1 Packet) 1 packet PO DAILY PRN PRN PRN Reason: Constipation Senna/Docusate Sodium (Senna/Docusate Sodium 1 Tablet) 2 tablet PO BID PRN PRN PRN Reason: Constipation Sodium Chloride (0.9% Saline Lock 10 Ml Syringe) 10 - 40 ml IV UD PRN PRN Reason: SALINE FLUSH Throat Lozenges (Benzocaine/Menthol 1 Lozenge) 1 lozenge MUCOUS MEM Q2H PRN PRN PRN Reason: SORE THROAT Last Admin: 12/05/20 22:04 Dose: 1 lozenge Documented by: STROKE Vital Signs/Narrative: Vital Signs Temp Pulse Resp BP Pulse Ox 12/06/20 05:59 68 12/06/20 05:01 99.0 F 73 20 H 113/72 92 12/06/20 04:50 88 Medical Necessity - Tobacco Use Smoking Status: Never smoker Tobacco Use: Non-smoker Assessment/Plan All Active Problems (Last Reviewed 11/01/17 @ 10:48 by Judd Banegas) Severe sepsis (Acute) COVID-19 virus infection (Acute) Hypokalemia (Acute) Hypoxia (Acute) Pneumonia due to COVID-19 virus (Acute) Screen for colon cancer (Acute) Patient is a 60-year-old lady diagnosed with COVID-19 on 11/27/2020 who presented with persistent nausea and vomiting with associated abdominal pain. Imaging studies obtained on admission demonstrated Interval development of mild bilateral multifocal pneumonic infiltrates. Admitted for subsequent inpatient management. 1. Severe sepsis ?Secondary to COVID-19 pneumonia admitted to regular nursing floor patient started on Decadron as well as remdesivir in addition to Rocephin with consultation placed to infectious disease 2. Hypokalemia ?Secondary to intractable nausea and vomiting corrected per protocol 3. Acute renal insufficiency ?Secondary to intractable nausea vomiting managed with IV fluids with subsequent monitoring of kidney function 4. Hypertension - Blood pressure controlled, home medications continued with dose adjustment as needed 5. Obesity with BMI 34.7 ?Weight loss advised 6. DVT prophylaxis Lovenox Inpatient E&M: 11246 [facility] L3
[2020-12-06] MEDS: Aspirin E.C. 81 MG Tablet PO (09:09)
[2020-12-06] MEDS: Famotidine 20 MG Tablet PO (09:09)
[2020-12-06] MEDS: Enoxaparin 100 MG/ML Syringe SC (09:10)
[2020-12-06] MEDS: dexAMETHasone 4 MG/ML Vial 6 MG IV (09:10)
[2020-12-06] MEDS: 0.9% Saline Lock 10 ML Syringe IV ×2 (09:13→22:03)
--- NOTE | 2020-12-06 11:31 | CASEMGMT ---
Social Work Physician documentation indicating pt is interested in advanced directives. SW placed call to pt room and introduced role of SW. At this time pt feeling fatigued and not well. Pt understanding need for advanced directives but not feeling up to having conversation at this time. SW will provide written information to pt on advance directives and meeting with SW as an outpatient to complete documents when she is feeling better. Information given to nurse to provide to pt. DONITA Wong
--- NOTE | 2020-12-06 13:30 | CASEMGMT ---
CHU COLLINS ASSESSMENT COVID-19+. Testing done 11/27/20 @ [facility] [place] CHU COLLINS placed call to pt's room for initial transition planning/care coordination assessment. CHU COLLINS introduced self and role at [facility].? Pt voices understanding and consents to assessment at this time.? Pt able to answer all questions appropriately.? Care providers, pharmacy, and demographics verified/updated at this time. PCP: Dr Maynard Specialists: none Preferred Pharmacy: [facility] [place] Insurance: MMO Prescription Benefit:? yes LNOK: , Harry Living Arrangements: Pt is independent. Lives w/her , daughter, and grandson in split-level home w/no steps to enter. 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 Daughter helps with home tasks. has not had any COVID symptoms. Daughter has had a cough and GS a runny nose. They have not been tested for COVID. They are able to self-isolate in the home. They have masks, cleaning supplies, and disinfectants. Pt states she has someone that can get groceries. Transportation: Pt states drives self and states no transportation concerns at this time.? Daughter will take her home @ d/c. DME: ? Denies using any DME and denies needs.? She does not have home O2. List of DME providers reviewed verbally with patient including [facility] affiliation. Pt states she has o preference, and pt is agreeable for [facility] to provide home oxygen if needed. HHC/SNF: No history of either and denies needs. No needs identified. Pt wishes to return home and states has no concerns with going home at time of discharge.? CM to follow for home oxygen needs and any further discharge planning/needs.? Pt voices no further concerns/needs at this time.? Advised pt to ask for CM if any further questions/concerns/needs arise.? Voices understanding. PLAN: ?Home w/family support and discharge plans in place. Pt may need home O2 @ discharge. If pt qualifies for O2, green sheet placed on chart w/instructions for Home O2 set up. Arielle GILBERT RN, CM
--- NOTE | 2020-12-06 14:46 | CON.PCM_ITS ---
Problem List (1) COVID-19 virus infection Status: Acute Reason for Consult: covid Consulted by: Dr. Bach History of Present Illness: The patient is a 60 year old F presented 12/05 with sx since 11/25, c/o cough, fever, sore throat, nausea, lot of vomiting, loss appetite, brief loss of taste/smell and diarrhea. Son and grandchild at home were sick, ok so far. Now with several days of worsening dyspnea, no sputum or chest pain. Came to ED, admitted on ceftriaxone, dex, remdesivir, therapeutic lovenox. Full ROS performed and neg except as noted above. - Medical History Past Medical History (Chronic Problems): Chronic Problems (Last Reviewed 11/01/17 @ 10:48 by Judd Banegas) Pulmonary embolism (Chronic) History of pulmonary embolism (Chronic) Hypertension (Chronic) Chronic kidney disease (CKD), stage III (moderate) (Chronic) Allergies/Adverse Reactions: Allergies No Known Allergies Allergy (Verified 12/05/20 19:51) Home Medications: Ambulatory Orders Medication Instructions Recorded Ascorbic Acid [Vitamin C] 1,000 mg PO DAILY 07/16/17 Aspirin E.C. [Ecotrin] 81 mg PO DAILY@0800 07/16/17 Cholecalciferol (Vitamin D3) 2,000 unit PO DAILY 07/16/17 [Vitamin D3] Cranberry 400 mg PO DAILY 07/16/17 clonidine HCl 0.1 mg tablet 0.1 mg PO QHS 11/27/20 - Social History Tobacco Use: non-smoker Vital Signs Temp Pulse Resp BP Pulse Ox 99.0 F 65 18 142/73 H 92 12/06/20 09:45 12/06/20 12:30 12/06/20 09:45 12/06/20 09:45 12/06/20 14:20 Oxygen Flow Rate (L/min) 2 Oxygen Delivery Method Nasal Cannula Weight: 94.7 kg Body Mass Index (BMI) 34.2 Microbiology Past 72 Hours 12/05/20 20:30 Respiratory Panel (PCR) - Final Mucosa - Nasopharyngeal 12/05/20 19:05 Streptococcus pneumoniae Antigen (M - Final Urine, Clean Catch 12/05/20 19:05 Legionella Antigen - Final Urine, Clean Catch Laboratory Tests Past 24 Hrs 12/05/20 12/05/20 12/05/20 15:17 15:17 15:17 WBC 21.4 H RBC 5.47 H Hgb 15.8 H Hct 46.9 MCV 85.7 MCH 28.9 MCHC 33.7 RDW Std Deviation 43.4 RDW Coeff of Tammie 13.6 Plt Count 407 MPV 10.5 Immature Gran % (Auto) 1.300 H Neut % (Auto) 82.8 H Lymph % (Auto) 6.4 L Harper % (Auto) 4.7 Eos % (Auto) 4.5 Baso % (Auto) 0.3 Absolute Neuts (auto) 17.7 H Absolute Lymphs (auto) 1.36 Nucleated RBC % 0 Differential Comment SCANNED PT 13.0 INR 1.0 APTT 27.0 D-Dimer Quant (PE/DVT) Sodium 138 Potassium 2.9 L Chloride 98 Carbon Dioxide 30.0 Anion Gap 10 BUN 37 H Creatinine 1.13 H Estim Creat Clear Calc 48.83 Est GFR (MDRD) Af Amer 63 Est GFR (MDRD) Non-Af 52 L BUN/Creatinine Ratio 32.7 H Glucose 113 H Lactic Acid Calcium 9.5 Magnesium Ferritin Total Bilirubin 0.90 AST 38 H ALT 37 Alkaline Phosphatase 82 Lactate Dehydrogenase Troponin I C-React Prot Ext Range B-Natriuretic Peptide Total Protein 8.3 H Albumin 3.4 Globulin 4.9 H Albumin/Globulin Ratio 0.7 L Procalcitonin Urine Color Urine Clarity Urine pH Ur Specific [place] Urine Protein Urine Glucose (UA) Urine Ketones Urine Occult Blood Urine Nitrite Urine Bilirubin Urine Urobilinogen Ur Leukocyte Esterase Urine RBC Urine WBC Ur Squamous Epith Cells Amorphous Sediment Urine Bacteria Urine Mucus MRSA (PCR) 12/05/20 12/05/20 12/05/20 15:17 15:17 15:17 WBC RBC Hgb Hct MCV MCH MCHC RDW Std Deviation RDW Coeff of Tammie Plt Count MPV Immature Gran % (Auto) Neut % (Auto) Lymph % (Auto) Harper % (Auto) Eos % (Auto) Baso % (Auto) Absolute Neuts (auto) Absolute Lymphs (auto) Nucleated RBC % Differential Comment PT INR APTT D-Dimer Quant (PE/DVT) 3.34 H* Sodium Potassium Chloride Carbon Dioxide Anion Gap BUN Creatinine Estim Creat Clear Calc Est GFR (MDRD) Af Amer Est GFR (MDRD) Non-Af BUN/Creatinine Ratio Glucose Lactic Acid 2.9 H* Calcium Magnesium 2.8 H Ferritin Total Bilirubin AST ALT Alkaline Phosphatase Lactate Dehydrogenase Troponin I C-React Prot Ext Range B-Natriuretic Peptide Total Protein Albumin Globulin Albumin/Globulin Ratio Procalcitonin Urine Color Urine Clarity Urine pH Ur Specific [place] Urine Protein Urine Glucose (UA) Urine Ketones Urine Occult Blood Urine Nitrite Urine Bilirubin Urine Urobilinogen Ur Leukocyte Esterase Urine RBC Urine WBC Ur Squamous Epith Cells Amorphous Sediment Urine Bacteria Urine Mucus MRSA (PCR) 12/05/20 12/05/20 12/05/20 15:17 15:17 15:17 WBC RBC Hgb Hct MCV MCH MCHC RDW Std Deviation RDW Coeff of Tammie Plt Count MPV Immature Gran % (Auto) Neut % (Auto) Lymph % (Auto) Harper % (Auto) Eos % (Auto) Baso % (Auto) Absolute Neuts (auto) Absolute Lymphs (auto) Nucleated RBC % Differential Comment PT INR APTT D-Dimer Quant (PE/DVT) Sodium Potassium Chloride Carbon Dioxide Anion Gap BUN Creatinine Estim Creat Clear Calc Est GFR (MDRD) Af Amer Est GFR (MDRD) Non-Af BUN/Creatinine Ratio Glucose Lactic Acid Calcium Magnesium 2.7 H Ferritin 798 H Total Bilirubin AST ALT Alkaline Phosphatase Lactate Dehydrogenase 396 H Troponin I < 0.015 C-React Prot Ext Range 158.00 H B-Natriuretic Peptide 12.2 Total Protein Albumin Globulin Albumin/Globulin Ratio Procalcitonin 0.17 H Urine Color Urine Clarity Urine pH Ur Specific [place] Urine Protein Urine Glucose (UA) Urine Ketones Urine Occult Blood Urine Nitrite Urine Bilirubin Urine Urobilinogen Ur Leukocyte Esterase Urine RBC Urine WBC Ur Squamous Epith Cells Amorphous Sediment Urine Bacteria Urine Mucus MRSA (PCR) 12/05/20 12/05/20 12/05/20 19:05 20:23 21:45 WBC RBC Hgb Hct MCV MCH MCHC RDW Std Deviation RDW Coeff of Tammie Plt Count MPV Immature Gran % (Auto) Neut % (Auto) Lymph % (Auto) Harper % (Auto) Eos % (Auto) Baso % (Auto) Absolute Neuts (auto) Absolute Lymphs (auto) Nucleated RBC % Differential Comment PT INR APTT D-Dimer Quant (PE/DVT) Sodium Potassium Chloride Carbon Dioxide Anion Gap BUN Creatinine Estim Creat Clear Calc Est GFR (MDRD) Af Amer Est GFR (MDRD) Non-Af BUN/Creatinine Ratio Glucose Lactic Acid 1.5 Calcium Magnesium Ferritin Total Bilirubin AST ALT Alkaline Phosphatase Lactate Dehydrogenase Troponin I C-React Prot Ext Range B-Natriuretic Peptide Total Protein Albumin Globulin Albumin/Globulin Ratio Procalcitonin Urine Color Yellow Urine Clarity Sl. Cloudy Urine pH 6.0 Ur Specific [place] 1.020 Urine Protein 100 H Urine Glucose (UA) Normal Urine Ketones 150 H Urine Occult Blood 50 H Urine Nitrite Negative Urine Bilirubin Negative Urine Urobilinogen 1 H Ur Leukocyte Esterase Negative Urine RBC 5-10 SEEN Urine WBC 0 SEEN Ur Squamous Epith Cells 0-5 SEEN Amorphous Sediment 1+ URATE Urine Bacteria 0 SEEN Urine Mucus 0 SEEN MRSA (PCR) Negative 12/06/20 12/06/20 06:00 06:00 WBC 17.1 H RBC 4.38 Hgb 12.5 Hct 39.0 MCV 89.0 MCH 28.5 MCHC 32.1 RDW Std Deviation 46.4 H RDW Coeff of Tammie 14.1 Plt Count 302 MPV 10.6 Immature Gran % (Auto) 1.100 H Neut % (Auto) 88.7 H Lymph % (Auto) 6.2 L Harper % (Auto) 3.8 Eos % (Auto) 0.0 Baso % (Auto) 0.2 Absolute Neuts (auto) 15.2 H Absolute Lymphs (auto) 1.05 Nucleated RBC % 0 Differential Comment PT INR APTT D-Dimer Quant (PE/DVT) Sodium 144 Potassium 3.6 Chloride 110 H Carbon Dioxide 27.0 Anion Gap 7 BUN 21 H Creatinine 0.71 Estim Creat Clear Calc 77.72 Est GFR (MDRD) Af Amer 109 Est GFR (MDRD) Non-Af 90 BUN/Creatinine Ratio 29.6 H Glucose 95 Lactic Acid Calcium 7.7 L Magnesium Ferritin Total Bilirubin 0.50 AST 67 H ALT 53 Alkaline Phosphatase 74 Lactate Dehydrogenase Troponin I C-React Prot Ext Range B-Natriuretic Peptide Total Protein 5.5 L Albumin 2.4 L Globulin 3.1 Albumin/Globulin Ratio 0.8 L Procalcitonin Urine Color Urine Clarity Urine pH Ur Specific [place] Urine Protein Urine Glucose (UA) Urine Ketones Urine Occult Blood Urine Nitrite Urine Bilirubin Urine Urobilinogen Ur Leukocyte Esterase Urine RBC Urine WBC Ur Squamous Epith Cells Amorphous Sediment Urine Bacteria Urine Mucus MRSA (PCR) - Other Studies Radiology: [] reviewed Other Studies: [] Route of nutrition/ use of supplements: [] Nutritional Intake: [] IV Site: [] Enriquez Catheter: [] - Physical Exam General: Alert, Oriented x3, Cooperative, No apparent distress HEENT: Atraumatic, PERRLA, EOMI Neck: Supple, No Nodes Lungs: Diminished Cardiovascular: Regular rate, Regular Rhythm Abdomen: Soft, Non Tender, Non-Distended Extremities: No edema Skin: No rashes IV Site: Peripheral, without redness Musculoskeletal: No Tenderness to Palpation of Joints or Extremities - Assessment/Plan Antibiotics: [] Assessment/Plan: [] Active and Suspected Problems (Last Reviewed 11/01/17 @ 10:48 by Judd Banegas) Severe sepsis (Acute) COVID-19 virus infection (Acute) Hypokalemia (Acute) Hypoxia (Acute) Pneumonia due to COVID-19 virus (Acute) covid with hypoxia - sx started 11/25. PCR (+) 11/27. CT showed no PE, d-dimer was 3.3 UAg neg. PCT neg. Will cont dex, remdesivir. Decreased lovenox to 40mg bid. Changed dex to po. Stopped ceftriaxone. At discharge, plan on 10 days total dex, 20 days of quarantine from start of sx 11/25, and 2 weeks of either xarelto 10mg daily or eliquis 2.5mg bid. Will follow, thank you
[2020-12-06] MEDS: BENZOCAINE/MENTHOL 1 LOZENGE MUCOUS MEM ×2 (16:40→22:03)
[2020-12-06] MEDS: cloNIDine HCl 0.1 MG Tablet PO (22:02)
[2020-12-06] MEDS: Enoxaparin 40 MG/0.4 ML Syringe SC (22:03)
[2020-12-07] VITALS (12 sets, daily range): BP systolic 119–148; BP diastolic 65–78; PULSE 54–72; RESP 18; TEMP 36.2–37.4; O2SAT 92–94
[2020-12-07] MEDS: 0.9% Saline Lock 10 ML Syringe IV ×2 (03:49→22:30)
--- NOTE | 2020-12-07 07:19 | PN_ITS ---
Patient Problems: Active and Suspected Problems (Last Reviewed 11/01/17 @ 10:48 by Judd Banegas) Severe sepsis (Acute) COVID-19 virus infection (Acute) Hypokalemia (Acute) Hypoxia (Acute) Pneumonia due to COVID-19 virus (Acute) Reason for Visit: Acute COVID-19 infection Diarrhea Subjective: Patient is a 60-year-old lady diagnosed with COVID-19 on 11/27/2020 who presented with persistent nausea and vomiting with associated abdominal pain. Imaging studies obtained on admission demonstrated Interval development of mild bilateral multifocal pneumonic infiltrates. Admitted for subsequent inpatient management. 12/07/2020; patient seen complains of feeling extremely weak. Also complains of several loose bowel movement. Potassium is low at 3.0. An order was given loperamide 4 mg x 1 Objective: GENERAL: cooperative appears ill looking HEENT: Atraumatic; EYES; Anicteric, Normal Conjunctiva NECK; supple, normal thyroid, RESPIRATORY: Diminished to auscultation CARDIOVASCULAR: Regular S1 S2, GI: soft, normoactive bowel sounds, : No Renal angle tenderness; EXTREMITIES: No edema, no clubbing, MUSCULOSKELETAL: no muscle waisting NEURO: Awake; no lateralizing signs. SKIN: No Rash PSYCH; Flat affect Vitals/I&O's: Vital Signs Temp Pulse Resp BP Pulse Ox 98.3 F 63 18 125/65 H 93 12/07/20 03:45 12/07/20 03:45 12/07/20 03:47 12/07/20 03:45 12/07/20 03:45 Oxygen Flow Rate (L/min) 2 Oxygen Delivery Method Nasal Cannula Weight: 95.1 kg Body Mass Index (BMI) 34.2 Intake and Output for Last 24 Hours 12/05/20 12/06/20 12/07/20 23:59 23:59 23:59 Intake Total 2220 / 2220 470 / 470 250 / 250 Balance 2220 / 2220 470 / 470 250 / 250 Microbiology Past 72 Hours 12/05/20 15:17 Blood Culture (Wb) - Anticubital Right Blood Culture - Preliminary No growth in 48 hours. 12/05/20 20:30 Mucosa - Nasopharyngeal Respiratory Panel (PCR) - Final 12/05/20 19:05 Urine, Clean Catch Streptococcus pneumoniae Antigen (M - Final 12/05/20 19:05 Urine, Clean Catch Legionella Antigen - Final Laboratory Results 12/06/20 06:00: Sodium 144, Potassium 3.6, Chloride 110 H, Carbon Dioxide 27.0, Anion Gap 7, BUN 21 H, Creatinine 0.71, Estim Creat Clear Calc 77.72, Est GFR (MDRD) Af Amer 109, Est GFR (MDRD) Non-Af 90, BUN/Creatinine Ratio 29.6 H, Glucose 95, Calcium 7.7 L, Total Bilirubin 0.50, AST 67 H, ALT 53, Alkaline Phosphatase 74, Total Protein 5.5 L, Albumin 2.4 L, Globulin 3.1, Albumin/Globulin Ratio 0.8 L Current Medications Acetaminophen (Acetaminophen 325 Mg Tablet) 650 mg PO Q6H PRN PRN PRN Reason: Pain Score 1-10/Temp > 100.7 F Last Admin: 12/05/20 22:04 Dose: 650 mg Documented by: Al Hydroxide/Mg Hydroxide (Mag Hydrox/Al Hydrox/Simeth 30 Ml Udc) 30 ml PO Q6H PRN PRN PRN Reason: Gastric Burning Albuterol Sulfate (Albuterol Sulfate 8 Gm Inhaler (60 Puffs)) 4 - 8 puff INHALATION Q4H PRN PRN PRN Reason: Dyspnea, wheezing Aspirin (Aspirin E.C. 81 Mg Tablet) 81 mg PO DAILY [facility] Last Admin: 12/06/20 09:09 Dose: 81 mg Documented by: Clonidine (Clonidine Hcl 0.1 Mg Tablet) 0.1 mg PO QHS [facility] Last Admin: 12/06/20 22:02 Dose: 0.1 mg Documented by: Dexamethasone (Dexamethasone 4 Mg Tablet) 6 mg PO DAILY [facility] Stop: 12/14/20 10:01 Enoxaparin Sodium (Enoxaparin 40 Mg/0.4 Ml Syringe) 40 mg SC BID [facility] Last Admin: 12/06/20 22:03 Dose: 40 mg Documented by: Famotidine (Famotidine 20 Mg Tablet) 20 mg PO DAILY [facility] Last Admin: 12/06/20 09:09 Dose: 20 mg Documented by: Guaifenesin (Guaifenesin 10 Ml Udc (200mg/10ml)) 20 ml PO Q4H PRN PRN PRN Reason: COUGH Hydralazine HCl (Hydralazine 20 Mg/Ml Vial) 10 mg IV Q4H PRN PRN PRN Reason: SBP > 160 Sodium Chloride () 250 mls @ 15 mls/hr IV .[id number] PRN PRN Reason: Saline Flush Sodium Chloride () 250 mls @ 15 mls/hr IV .[id number] PRN PRN Reason: Additional IVPB Infusion Remdesivir 100 mg/ Sodium (Chloride) 250 mls @ 125 mls/hr IV DAILY@2200 [facility] Stop: 12/09/20 23:59 Last Infusion: 12/07/20 00:15 Dose: Infused Documented by: Ibuprofen (Ibuprofen 400 Mg Tablet) 400 mg PO Q4H PRN PRN PRN Reason: Pain Score 1-10/Temp > 100.7 F Magnesium Hydroxide (Magnesium Hydroxide 30 Ml Udc) 30 ml PO DAILY PRN PRN PRN Reason: Constipation Melatonin (Melatonin 3 Mg Tablet) 3 mg PO QHS PRN PRN PRN Reason: INSOMNIA Nutritional Formula (Lactose Free) (Ensure Enlive 120 Ml Liquid) 120 ml PO BID [facility] Ondansetron HCl (Ondansetron 4 Mg/2 Ml Vial) 4 mg IV Q8H PRN PRN PRN Reason: NAUSEA/VOMITING Prochlorperazine Edisylate (Prochlorperazine 10 Mg/2 Ml Vial) 5 mg IV Q4H PRN PRN PRN Reason: Breakthrough Nausea/Vomiting Psyllium Hydrophilic Mucilloid (Psyllium 1 Packet) 1 packet PO DAILY PRN PRN PRN Reason: Constipation Senna/Docusate Sodium (Senna/Docusate Sodium 1 Tablet) 2 tablet PO BID PRN PRN PRN Reason: Constipation Sodium Chloride (0.9% Saline Lock 10 Ml Syringe) 10 - 40 ml IV UD PRN PRN Reason: SALINE FLUSH Last Admin: 12/07/20 03:49 Dose: 10 ml Documented by: Throat Lozenges (Benzocaine/Menthol 1 Lozenge) 1 lozenge MUCOUS MEM Q2H PRN PRN PRN Reason: SORE THROAT Last Admin: 12/06/20 22:03 Dose: 1 lozenge Documented by: STROKE Vital Signs/Narrative: Vital Signs Temp Pulse Resp BP Pulse Ox 12/07/20 03:47 18 12/07/20 03:45 98.3 F 63 18 125/65 H 93 Medical Necessity - Tobacco Use Smoking Status: Never smoker Tobacco Use: Non-smoker Assessment/Plan All Active Problems (Last Reviewed 11/01/17 @ 10:48 by Judd Banegas) Severe sepsis (Acute) COVID-19 virus infection (Acute) Hypokalemia (Acute) Hypoxia (Acute) Pneumonia due to COVID-19 virus (Acute) Screen for colon cancer (Acute) Patient is a 60-year-old lady diagnosed with COVID-19 on 11/27/2020 who presented with persistent nausea and vomiting with associated abdominal pain. Imaging studies obtained on admission demonstrated Interval development of mild bilateral multifocal pneumonic infiltrates. Admitted for subsequent inpatient management. 1. Severe sepsis ?Secondary to COVID-19 pneumonia admitted to regular nursing floor patient started on Decadron as well as remdesivir in addition to Rocephin with consultation placed to infectious disease -12/07/2020; patient seen experiencing several loose bowel movement to be secondary to viral gastroenteritis from COVID-19. Plan is to treat symptomatically with IV hydration and correction of electrolyte 2. Hypokalemia ?Secondary to intractable nausea and vomiting corrected per protocol ?12/07/2020 potassium up to 3.5 additional potassium given 3. Acute renal insufficiency ?Secondary to intractable nausea vomiting managed with IV fluids with subsequent monitoring of kidney function ?12/07/2020 creatinine 0.63 4. Hypertension - Blood pressure controlled, home medications continued with dose adjustment as needed 5. Obesity with BMI 34.7 ?Weight loss advised 6. DVT prophylaxis Lovenox Inpatient E&M: [id number] [facility] L3
--- NOTE | 2020-12-07 07:22 | PCS.PANDOC ---
PANDEMIC DOCUMENTATION INITIATED: Date: 10/28/2020 Time:
[2020-12-07 07:44] LABS: Hematocrit 37.7 % (37-47); Hemoglobin 12.4 g/dL (12.0-15.0); Mean Corp Hgb Conc 32.9 g/dL (32-36); Mean Corpuscular Hgb 29.4 pg (27.0-32.0); Mean Corpuscular Volume 89.3 fL (81-99); Mean Platelet Vol. 10.6 fl (6.2-12.0); Platelet Count 304 K/mm3 (150-450); RBC Distribution Width CV 14.2 % (11.6-14.6); RBC Distribution Width SD 45.8 fl (35.1-43.9); Red Blood Count 4.22 M/mm3 (4.2-5.4); White Blood Count 12.8 K/mm3 (4.4-11.0)
[2020-12-07 08:10] LABS: AST(SGOT) 32 U/L (15-37); Alanine Aminotransfer ALT/SGPT 47 U/L (13-56); Albumin, Serum 2.2 g/dL (3.2-5.0); Alkaline Phosphatase 68 U/L (45-117); Anion Gap 5 (5-15); BUN 24 mg/dL (7-18); Bilirubin, Direct 0.12 mg/dL (0.00-0.30); Calcium,Total 8.3 mg/dL (8.5-10.1); Chloride 110 mmol/L (98-107); Creatinine, Serum 0.63 mg/dL (0.55-1.02); EST Glomerular Filtration Rate 103 mL/min (>60); Est Glom Filt Rate - Afr Amer 124 mL/min (>60); Estimated Creatinine Clearance 87.59 ml/min; Globulin 3.8 g/dL (2.2-4.2); Glucose 83 mg/dL (74-106); Magnesium 2.5 mg/dL (1.6-2.6); Potassium 3.5 mmol/L (3.5-5.1); Sodium Level 143 mmol/L (136-145)
[2020-12-07] MEDS: Aspirin E.C. 81 MG Tablet PO (09:46)
[2020-12-07] MEDS: Famotidine 20 MG Tablet PO (09:46)
[2020-12-07] MEDS: Enoxaparin 40 MG/0.4 ML Syringe SC ×2 (09:46→22:30)
[2020-12-07] MEDS: dexAMETHasone 4 MG Tablet 6 MG PO (09:46)
[2020-12-07] MEDS: Loperamide 2 MG Capsule 4 MG PO (12:38)
[2020-12-07] MEDS: cloNIDine HCl 0.1 MG Tablet PO (22:31)
[2020-12-08] VITALS (8 sets, daily range): BP systolic 126–150; BP diastolic 70–86; PULSE 57–73; RESP 16–18; TEMP 36.6–37.2; O2SAT 89–96
[2020-12-08] MEDS: 0.9% Saline Lock 10 ML Syringe IV (05:00)
[2020-12-08 07:56] LABS: Hematocrit 38.1 % (37-47); Hemoglobin 12.1 g/dL (12.0-15.0); Mean Corp Hgb Conc 31.8 g/dL (32-36); Mean Corpuscular Hgb 28.1 pg (27.0-32.0); Mean Corpuscular Volume 88.6 fL (81-99); Mean Platelet Vol. 10.3 fl (6.2-12.0); Platelet Count 311 K/mm3 (150-450); RBC Distribution Width CV 13.8 % (11.6-14.6); RBC Distribution Width SD 44.7 fl (35.1-43.9); White Blood Count 9.4 K/mm3 (4.4-11.0)
[2020-12-08 08:26] LABS: AST(SGOT) 24 U/L (15-37); Alanine Aminotransfer ALT/SGPT 41 U/L (13-56); Albumin, Serum 2.2 g/dL (3.2-5.0); Alkaline Phosphatase 60 U/L (45-117); Anion Gap 6 (5-15); BUN 20 mg/dL (7-18); BUN/Creat Ratio 33.6 RATIO (10-20); Bilirubin, Direct 0.12 mg/dL (0.00-0.30); Calcium,Total 8.1 mg/dL (8.5-10.1); Chloride 109 mmol/L (98-107); EST Glomerular Filtration Rate 110 mL/min (>60); Est Glom Filt Rate - Afr Amer 133 mL/min (>60); Estimated Creatinine Clearance 91.97 ml/min; Globulin 3.5 g/dL (2.2-4.2); Glucose 84 mg/dL (74-106); Potassium 3.5 mmol/L (3.5-5.1); Protein, Total 5.7 g/dL (6.4-8.2); Sodium Level 141 mmol/L (136-145)
--- NOTE | 2020-12-08 09:50 | PCM.PN.HOSP ---
Patient Problems: Active and Suspected Problems (Last Reviewed 11/01/17 @ 10:48 by Judd Banegas) Severe sepsis (Acute) COVID-19 virus infection (Acute) Hypokalemia (Acute) Hypoxia (Acute) Pneumonia due to COVID-19 virus (Acute) Reason for Visit: Acute COVID-19 infection Subjective: Patient is a 60-year-old lady diagnosed with COVID-19 on 11/27/2020 who presented with persistent nausea and vomiting with associated abdominal pain. Imaging studies obtained on admission demonstrated Interval development of mild bilateral multifocal pneumonic infiltrates. Admitted for subsequent inpatient management. 12/07/2020; patient seen complains of feeling extremely weak. Also complains of several loose bowel movement. Potassium is low at 3.0. An order was given loperamide 4 mg x 1 12/08/2020; patient seen states diarrhea has subsided however she is experiencing extreme fatigue. Objective: GENERAL: cooperative appears ill looking HEENT: Atraumatic; EYES; Anicteric, Normal Conjunctiva NECK; supple, normal thyroid, RESPIRATORY: Diminished to auscultation CARDIOVASCULAR: Regular S1 S2, GI: soft, normoactive bowel sounds, : No Renal angle tenderness; EXTREMITIES: No edema, no clubbing, MUSCULOSKELETAL: no muscle waisting NEURO: Awake; no lateralizing signs. SKIN: No Rash PSYCH; Flat affect Vitals/I&O's: Vital Signs Temp Pulse Resp BP Pulse Ox 98.9 F 62 16 126/70 H 89 12/08/20 04:56 12/08/20 04:56 12/08/20 04:56 12/08/20 04:56 12/08/20 07:06 Oxygen Flow Rate (L/min) 2 Oxygen Delivery Method Room Air Weight: 94.665 kg Body Mass Index (BMI) 34.2 Intake and Output for Last 24 Hours 12/06/20 12/07/20 12/08/20 23:59 23:59 23:59 Intake Total 470 / 470 500 / 500 550 / 550 Balance 470 / 470 500 / 500 550 / 550 Microbiology Past 72 Hours 12/05/20 16:04 Blood Culture (Wb) - Anticubital Left Blood Culture - Preliminary No growth in 48 hours. 12/05/20 19:05 Urine, Clean Catch Urine Culture - Final Mixed Gram Pos & Gram Neg Org 12/05/20 15:17 Blood Culture (Wb) - Anticubital Right Blood Culture - Preliminary No growth in 48 hours. 12/05/20 20:30 Mucosa - Nasopharyngeal Respiratory Panel (PCR) - Final 12/05/20 19:05 Urine, Clean Catch Streptococcus pneumoniae Antigen (M - Final 12/05/20 19:05 Urine, Clean Catch Legionella Antigen - Final Laboratory Results 12/08/20 07:15: Sodium 141, Potassium 3.5, Chloride 109 H, Carbon Dioxide 26.0, Anion Gap 6, BUN 20 H, Creatinine 0.60, Estim Creat Clear Calc 91.97, Est GFR (MDRD) Af Amer 133, Est GFR (MDRD) Non-Af 110, BUN/Creatinine Ratio 33.6 H, Glucose 84, Calcium 8.1 L, Total Bilirubin 0.40, Direct Bilirubin 0.12, AST 24, ALT 41, Alkaline Phosphatase 60, Total Protein 5.7 L, Albumin 2.2 L, Globulin 3.5 12/08/20 07:20: WBC 9.4, RBC 4.30, Hgb 12.1, Hct 38.1, MCV 88.6, MCH 28.1, MCHC 31.8 L, RDW Std Deviation 44.7 H, RDW Coeff of Tammie 13.8, Plt Count 311, MPV 10.3 Current Medications Acetaminophen (Acetaminophen 325 Mg Tablet) 650 mg PO Q6H PRN PRN PRN Reason: Pain Score 1-10/Temp > 100.7 F Last Admin: 12/05/20 22:04 Dose: 650 mg Documented by: Al Hydroxide/Mg Hydroxide (Mag Hydrox/Al Hydrox/Simeth 30 Ml Udc) 30 ml PO Q6H PRN PRN PRN Reason: Gastric Burning Albuterol Sulfate (Albuterol Sulfate 8 Gm Inhaler (60 Puffs)) 4 - 8 puff INHALATION Q4H PRN PRN PRN Reason: Dyspnea, wheezing Aspirin (Aspirin E.C. 81 Mg Tablet) 81 mg PO DAILY [facility] Last Admin: 12/07/20 09:46 Dose: 81 mg Documented by: Clonidine (Clonidine Hcl 0.1 Mg Tablet) 0.1 mg PO QHS [facility] Last Admin: 12/07/20 22:31 Dose: 0.1 mg Documented by: Dexamethasone (Dexamethasone 4 Mg Tablet) 6 mg PO DAILY [facility] Stop: 12/14/20 10:01 Last Admin: 12/07/20 09:46 Dose: 6 mg Documented by: Enoxaparin Sodium (Enoxaparin 40 Mg/0.4 Ml Syringe) 40 mg SC BID [facility] Last Admin: 12/07/20 22:30 Dose: 40 mg Documented by: Famotidine (Famotidine 20 Mg Tablet) 20 mg PO DAILY [facility] Last Admin: 12/07/20 09:46 Dose: 20 mg Documented by: Guaifenesin (Guaifenesin 10 Ml Udc (200mg/10ml)) 20 ml PO Q4H PRN PRN PRN Reason: COUGH Hydralazine HCl (Hydralazine 20 Mg/Ml Vial) 10 mg IV Q4H PRN PRN PRN Reason: SBP > 160 Sodium Chloride () 250 mls @ 15 mls/hr IV .[id number] PRN PRN Reason: Saline Flush Sodium Chloride () 250 mls @ 15 mls/hr IV .[id number] PRN PRN Reason: Additional IVPB Infusion Remdesivir 100 mg/ Sodium (Chloride) 250 mls @ 125 mls/hr IV DAILY@2200 [facility] Stop: 12/09/20 23:59 Last Infusion: 12/08/20 02:38 Dose: Infused Documented by: Ibuprofen (Ibuprofen 400 Mg Tablet) 400 mg PO Q4H PRN PRN PRN Reason: Pain Score 1-10/Temp > 100.7 F Magnesium Hydroxide (Magnesium Hydroxide 30 Ml Udc) 30 ml PO DAILY PRN PRN PRN Reason: Constipation Melatonin (Melatonin 3 Mg Tablet) 3 mg PO QHS PRN PRN PRN Reason: INSOMNIA Ondansetron HCl (Ondansetron 4 Mg/2 Ml Vial) 4 mg IV Q8H PRN PRN PRN Reason: NAUSEA/VOMITING Prochlorperazine Edisylate (Prochlorperazine 10 Mg/2 Ml Vial) 5 mg IV Q4H PRN PRN PRN Reason: Breakthrough Nausea/Vomiting Psyllium Hydrophilic Mucilloid (Psyllium 1 Packet) 1 packet PO DAILY PRN PRN PRN Reason: Constipation Senna/Docusate Sodium (Senna/Docusate Sodium 1 Tablet) 2 tablet PO BID PRN PRN PRN Reason: Constipation Sodium Chloride (0.9% Saline Lock 10 Ml Syringe) 10 - 40 ml IV UD PRN PRN Reason: SALINE FLUSH Last Admin: 12/08/20 05:00 Dose: 10 ml Documented by: Throat Lozenges (Benzocaine/Menthol 1 Lozenge) 1 lozenge MUCOUS MEM Q2H PRN PRN PRN Reason: SORE THROAT Last Admin: 12/06/20 22:03 Dose: 1 lozenge Documented by: STROKE Vital Signs/Narrative: Vital Signs Pulse Ox 12/08/20 07:06 89 Medical Necessity - Tobacco Use Smoking Status: Never smoker Tobacco Use: Non-smoker Assessment/Plan All Active Problems (Last Reviewed 11/01/17 @ 10:48 by Judd Banegas) Severe sepsis (Acute) COVID-19 virus infection (Acute) Hypokalemia (Acute) Hypoxia (Acute) Pneumonia due to COVID-19 virus (Acute) Screen for colon cancer (Acute) Patient is a 60-year-old lady diagnosed with COVID-19 on 11/27/2020 who presented with persistent nausea and vomiting with associated abdominal pain. Imaging studies obtained on admission demonstrated Interval development of mild bilateral multifocal pneumonic infiltrates. Admitted for subsequent inpatient management. 1. Severe sepsis ?Secondary to COVID-19 pneumonia admitted to regular nursing floor patient started on Decadron as well as remdesivir in addition to Rocephin with consultation placed to infectious disease -12/07/2020; patient seen experiencing several loose bowel movement to be secondary to viral gastroenteritis from COVID-19. Plan is to treat symptomatically with IV hydration and correction of electrolyte - 12/08/2020; patient seen states diarrhea has subsided however she is experiencing extreme fatigue. 2. Hypokalemia ?Secondary to intractable nausea and vomiting corrected per protocol ?12/07/2020 potassium up to 3.5 additional potassium given 3. Acute renal insufficiency ?Secondary to intractable nausea vomiting managed with IV fluids with subsequent monitoring of kidney function ?12/07/2020 creatinine 0.63 4. Hypertension - Blood pressure controlled, home medications continued with dose adjustment as needed 5. Obesity with BMI 34.7 ?Weight loss advised 6. DVT prophylaxis Lovenox Inpatient E&M: [id number] [facility] L2
[2020-12-08] MEDS: Enoxaparin 40 MG/0.4 ML Syringe SC ×2 (10:37→22:00)
[2020-12-08] MEDS: dexAMETHasone 4 MG Tablet 6 MG PO (10:37)
[2020-12-08] MEDS: Aspirin E.C. 81 MG Tablet PO (10:37)
[2020-12-08] MEDS: Famotidine 20 MG Tablet PO (10:37)
[2020-12-08] MEDS: MELATONIN 3 MG TABLET PO (22:00)
[2020-12-08] MEDS: cloNIDine HCl 0.1 MG Tablet PO (22:00)
[2020-12-09 04:06] VITALS: BP 115/70; PULSE 76; RESP 18; TEMP 36.9; O2SAT 92
[2020-12-09 06:33] LABS: Hematocrit 38.4 % (37-47); Hemoglobin 12.7 g/dL (12.0-15.0); Mean Corp Hgb Conc 33.1 g/dL (32-36); Mean Corpuscular Hgb 28.9 pg (27.0-32.0); Mean Corpuscular Volume 87.5 fL (81-99); Mean Platelet Vol. 10.4 fl (6.2-12.0); Platelet Count 354 K/mm3 (150-450); RBC Distribution Width CV 13.4 % (11.6-14.6); RBC Distribution Width SD 43.4 fl (35.1-43.9); Red Blood Count 4.39 M/mm3 (4.2-5.4); White Blood Count 9.2 K/mm3 (4.4-11.0)
[2020-12-09 07:00] LABS: AST(SGOT) 21 U/L (15-37); Alanine Aminotransfer ALT/SGPT 42 U/L (13-56); Albumin, Serum 2.2 g/dL (3.2-5.0); Alkaline Phosphatase 58 U/L (45-117); Anion Gap 5 (5-15); BUN 18 mg/dL (7-18); Bilirubin, Direct 0.08 mg/dL (0.00-0.30); Calcium,Total 8.2 mg/dL (8.5-10.1); Chloride 108 mmol/L (98-107); Creatinine, Serum 0.58 mg/dL (0.55-1.02); EST Glomerular Filtration Rate 113 mL/min (>60); Est Glom Filt Rate - Afr Amer 137 mL/min (>60); Estimated Creatinine Clearance 95.14 ml/min; Globulin 3.4 g/dL (2.2-4.2); Glucose 82 mg/dL (74-106); Potassium 3.7 mmol/L (3.5-5.1); Protein, Total 5.6 g/dL (6.4-8.2); Sodium Level 140 mmol/L (136-145)
[2020-12-09 07:34] VITALS: O2SAT 96
[2020-12-09] MEDS: Aspirin E.C. 81 MG Tablet PO (07:54)
[2020-12-09] MEDS: Famotidine 20 MG Tablet PO (07:54)
[2020-12-09] MEDS: Enoxaparin 40 MG/0.4 ML Syringe SC (07:55)
[2020-12-09] MEDS: dexAMETHasone 4 MG Tablet 6 MG PO (07:55)
[2020-12-09 07:57] VITALS: BP 118/64; PULSE 84; RESP 16; TEMP 36.6; O2SAT 92
[2020-12-09 08:00] VITALS: O2SAT 89; O2SAT 92
--- NOTE | 2020-12-09 11:42 | DCINST_ITS ---
- Discharge Diagnoses Current Active Problems: Current Active and Chronic Problems (Last Reviewed 11/01/17 @ 10:48 by Judd Banegas) Severe sepsis (Acute) COVID-19 virus infection (Acute) Hypokalemia (Acute) Hypoxia (Acute) Pneumonia due to COVID-19 virus (Acute) History of pulmonary embolism (Chronic) Hypertension (Chronic) Chronic kidney disease (CKD), stage III (moderate) (Chronic) You will use the following diet at home:: Regular Your food should be the consistency of: Regular Discharge Activity: Return to Normal Activity Weight Bearing Status: Weight bearing as tolerated Call your doctor if you observe: Fever of 101 or Higher, Shortness of breath, Dizziness, Fainting spells, Chest pain, Increased palpitations (irregular heartbeat), Uncontrolled pain Additional Instructions: Quarantine yourself for 6 days more to complete total of 20 days of quarantine for COVID-19, use facemask at all times, wash hands frequently. Allergies/Adverse Reactions: Allergies No Known Allergies Allergy (Verified 12/05/20 19:51) Medications to take at Discharge Ascorbic Acid [Vitamin C] 1,000 mg PO DAILY 07/16/17 Aspirin E.C. [Ecotrin] 81 mg PO DAILY@0800 07/16/17 Cholecalciferol (Vitamin D3) [Vitamin D3] 2,000 unit PO DAILY 07/16/17 Cranberry 400 mg PO DAILY 07/16/17 clonidine HCl 0.1 mg tablet 0.1 mg PO QHS 11/27/20 Apixaban [Eliquis] 2.5 mg PO BID #20 tab 12/09/20 Dexamethasone [Decadron] 6 mg PO DAILY 5 Days tab 12/09/20 The following prescriptions were given: Dexamethasone [Decadron] 6 mg PO DAILY 5 Days tab Prescription Printed Apixaban [Eliquis] 2.5 mg PO BID #20 tab Transmission Status: Pending to [facility] Primary Care Physician: Ned Maynard MD [Primary Care Provider] - Please follow up with your Primary Care Physician in: 1-2 weeks. Test Results: Test results from this visit will be discussed in further detail at your follow- up appointment, if applicable.
--- NOTE | 2020-12-09 11:46 | PCM.DC.SUM ---
Discharge Date and Diagnosis - Problem List Patient Problems: Active and Suspected Problems (Last Reviewed 11/01/17 @ 10:48 by Judd Banegas) Severe sepsis (Acute) Hypokalemia (Acute) Hypoxia (Acute) Pneumonia due to COVID-19 virus (Acute) Date of Admission: 12/05/20 Date of Discharge: 12/09/20 - Primary Discharge Diagnosis Acute Problems: Active Problems (Last Reviewed 11/01/17 @ 10:48 by Judd Banegas) #1 acute bilateral COVID-19 pneumonia. #2 severe sepsis. #3 hypoxia, resolved. #4 hypokalemia. - Secondary Discharge Diagnosis Chronic Problems: Chronic Problems (Last Reviewed 11/01/17 @ 10:48 by Judd Banegas) Pulmonary embolism (Chronic) History of pulmonary embolism (Chronic) Hypertension (Chronic) Chronic kidney disease (CKD), stage III (moderate) (Chronic) Hospital Course and Treatment Imaging Results: Clinical Impression(s) from Imaging Studies Chest X-Ray 12/05/20 17:05 IMPRESSION: 1. Interval appearance of mild patchy consolidation of the bilateral lower lobes. A trace left pleural effusion is also present. Electronically Signed: Evan Wade MD at 17:34 EST , Service support , Chest CTA 12/05/20 20:15 IMPRESSION: 1. Interval development of mild bilateral multifocal pneumonic infiltrates. 2. No demonstrated pulmonary embolism or arterial dissection. Electronically Signed: Evan Wade MD at 21:25 EST , Service support , Dr. Rhoades, infectious disease. Operations: None Procedures: None Summary of Care Provided: Patient seen and examined on the day of discharge and appeared to be stable to be discharged home. Apart from mild fatigue and weakness, no other complaints. Reported mild cough. Denied shortness of breath. Empirically Pulsoxymeter revealed pulse ox of 89% on room air with ambulation, other vital signs are stable. The patient is a 60 year old F presented to the emergency room because of nausea and vomiting as well as weakness, was diagnosed with COVID-19 on November 27, 2020 after she had symptoms of low-grade fever, chills, mild cough that started on November 25, 2020. She was found to have mild patchy consolidation of bilateral lower lobes with small left pleural effusion consistent with acute bilateral COVID-19 pneumonia. On admission, patient was tachycardic and tachypneic, did have leukocytosis and her lactic acid was normal and this is consistent with severe sepsis. CTA chest done and showed no PE or dissection, revealed mild bilateral multifocal infiltrate. [facility], started on IV Decadron and IV remdesivir as well as oxygen by nasal cannula. She was started on IV Rocephin that was discontinued later. Pneumococcal and Legionella antigen were negative. Urine culture showed mixed growth. Respiratory panel for viruses were negative. Blood culture showed no growth in 48 hours. Infectious disease consulted and agreed to continue patient on IV Decadron and IV remdesivir. With above-mentioned treatment, patient was improved. Initially, she required oxygen up to 2 L and with treatment, she was able to come off oxygen. On the day of discharge, ambulatory pulse oximeter done and her pulse ox was 89% on room air with ambulation. She did not qualify for home oxygen. Patient discharged home in a stable medical condition, discharged on Decadron 6 mg p.o. daily for 5 days to complete total of 10 days of treatment, discharged on Eliquis 2.5 mg p.o. twice daily for 10 days to complete total of 2 weeks of treatment, no oxygen needed upon discharge, recommended proper PCP in 1-2 week. Patient Problems: Active and Suspected Problems (Last Reviewed 11/01/17 @ 10:48 by Judd Banegas) Severe sepsis (Acute) Hypokalemia (Acute) Hypoxia (Acute) Pneumonia due to COVID-19 virus (Acute) - Physical Exam Vitals/I&O's: Vital Signs Temp Pulse Resp BP Pulse Ox 98 F 84 16 118/64 92 12/09/20 07:57 12/09/20 07:57 12/09/20 07:57 12/09/20 07:57 12/09/20 08:00 Oxygen Flow Rate (L/min) 2 Oxygen Delivery Method Room Air Weight: 208 lb 1.862 oz Body Mass Index (BMI) 34.2 Intake and Output for Last 24 Hours 12/07/20 12/08/20 12/09/20 23:59 23:59 23:59 Intake Total 500 / 500 1050 / 1050 250 / 250 Balance 500 / 500 1050 / 1050 250 / 250 General: Alert, Oriented x3, Cooperative HEENT: Atraumatic, PERRLA, EOMI, Normocephalic Oral: Moist Mucosa, No Gingival or Mucosal Lesions/ Ulcerations Neck: Supple, No JVD, Negative Carotid Bruits, Trachea Midline, Thyroid Normal Size and Texture Lungs: Clear to auscultation, No rhonchi, No wheeze, No rales, Diminished Cardiovascular: Regular rate, Regular Rhythm, Normal S1, Normal S2, PMI Normal Abdomen: Bowel Sounds Present, Soft, Non Tender, Non-Distended, No Hepato-splenomegaly Extremities: No clubbing, No cyanosis, No edema Skin: No rashes, No breakdown Lymphatic: No Cervical, Supraclavicular, or Inguinal Adenopathy Neurological: Cranial nerves II-XII grossly intact, Neuro grossly intact Psych/Mental Status: Normal Affect, Appropriate Microbiology Past 72 Hours 12/05/20 16:04 Blood Culture (Wb) - Anticubital Left Blood Culture - Preliminary No growth in 48 hours. 12/05/20 19:05 Urine, Clean Catch Urine Culture - Final Mixed Gram Pos & Gram Neg Org 12/05/20 15:17 Blood Culture (Wb) - Anticubital Right Blood Culture - Preliminary No growth in 48 hours. Laboratory Results 12/09/20 05:50: WBC 9.2, RBC 4.39, Hgb 12.7, Hct 38.4, MCV 87.5, MCH 28.9, MCHC 33.1, RDW Std Deviation 43.4, RDW Coeff of Tammie 13.4, Plt Count 354, MPV 10.4 12/09/20 05:50: Sodium 140, Potassium 3.7, Chloride 108 H, Carbon Dioxide 27.0, Anion Gap 5, BUN 18, Creatinine 0.58, Estim Creat Clear Calc 95.14, Est GFR (MDRD) Af Amer 137, Est GFR (MDRD) Non-Af 113, BUN/Creatinine Ratio 31.0 H, Glucose 82, Calcium 8.2 L, Total Bilirubin 0.40, Direct Bilirubin 0.08, AST 21, ALT 42, Alkaline Phosphatase 58, Total Protein 5.6 L, Albumin 2.2 L, Globulin 3.4 Current Medications Acetaminophen (Acetaminophen 325 Mg Tablet) 650 mg PO Q6H PRN PRN PRN Reason: Pain Score 1-10/Temp > 100.7 F Last Admin: 12/05/20 22:04 Dose: 650 mg Documented by: Al Hydroxide/Mg Hydroxide (Mag Hydrox/Al Hydrox/Simeth 30 Ml Udc) 30 ml PO Q6H PRN PRN PRN Reason: Gastric Burning Albuterol Sulfate (Albuterol Sulfate 8 Gm Inhaler (60 Puffs)) 4 - 8 puff INHALATION Q4H PRN PRN PRN Reason: Dyspnea, wheezing Aspirin (Aspirin E.C. 81 Mg Tablet) 81 mg PO DAILY [facility] Last Admin: 12/09/20 07:54 Dose: 81 mg Documented by: Clonidine (Clonidine Hcl 0.1 Mg Tablet) 0.1 mg PO QHS [facility] Last Admin: 12/08/20 22:00 Dose: 0.1 mg Documented by: Dexamethasone (Dexamethasone 4 Mg Tablet) 6 mg PO DAILY [facility] Stop: 12/14/20 10:01 Last Admin: 12/09/20 07:55 Dose: 6 mg Documented by: Enoxaparin Sodium (Enoxaparin 40 Mg/0.4 Ml Syringe) 40 mg SC BID [facility] Last Admin: 12/09/20 07:55 Dose: 40 mg Documented by: Famotidine (Famotidine 20 Mg Tablet) 20 mg PO DAILY [facility] Last Admin: 12/09/20 07:54 Dose: 20 mg Documented by: Guaifenesin (Guaifenesin 10 Ml Udc (200mg/10ml)) 20 ml PO Q4H PRN PRN PRN Reason: COUGH Hydralazine HCl (Hydralazine 20 Mg/Ml Vial) 10 mg IV Q4H PRN PRN PRN Reason: SBP > 160 Sodium Chloride () 250 mls @ 15 mls/hr IV .[id number] PRN PRN Reason: Saline Flush Sodium Chloride () 250 mls @ 15 mls/hr IV .[id number] PRN PRN Reason: Additional IVPB Infusion Remdesivir 100 mg/ Sodium (Chloride) 250 mls @ 125 mls/hr IV DAILY@2200 [facility] Stop: 12/09/20 23:59 Last Infusion: 12/09/20 00:31 Dose: Infused Documented by: Ibuprofen (Ibuprofen 400 Mg Tablet) 400 mg PO Q4H PRN PRN PRN Reason: Pain Score 1-10/Temp > 100.7 F Magnesium Hydroxide (Magnesium Hydroxide 30 Ml Udc) 30 ml PO DAILY PRN PRN PRN Reason: Constipation Melatonin (Melatonin 3 Mg Tablet) 3 mg PO QHS PRN PRN PRN Reason: INSOMNIA Last Admin: 12/08/20 22:00 Dose: 3 mg Documented by: Ondansetron HCl (Ondansetron 4 Mg/2 Ml Vial) 4 mg IV Q8H PRN PRN PRN Reason: NAUSEA/VOMITING Prochlorperazine Edisylate (Prochlorperazine 10 Mg/2 Ml Vial) 5 mg IV Q4H PRN PRN PRN Reason: Breakthrough Nausea/Vomiting Psyllium Hydrophilic Mucilloid (Psyllium 1 Packet) 1 packet PO DAILY PRN PRN PRN Reason: Constipation Senna/Docusate Sodium (Senna/Docusate Sodium 1 Tablet) 2 tablet PO BID PRN PRN PRN Reason: Constipation Sodium Chloride (0.9% Saline Lock 10 Ml Syringe) 10 - 40 ml IV UD PRN PRN Reason: SALINE FLUSH Last Admin: 12/08/20 05:00 Dose: 10 ml Documented by: Throat Lozenges (Benzocaine/Menthol 1 Lozenge) 1 lozenge MUCOUS MEM Q2H PRN PRN PRN Reason: SORE THROAT Last Admin: 12/06/20 22:03 Dose: 1 lozenge Documented by: Discharge Activity: Return to Normal Activity Weight Bearing Status: Weight bearing as tolerated Call your doctor if you observe: Fever of 101 or Higher, Shortness of breath, Dizziness, Fainting spells, Chest pain, Increased palpitations (irregular heartbeat), Uncontrolled pain Home Medications: Medications to take at Discharge Ascorbic Acid [Vitamin C] 1,000 mg PO DAILY 07/16/17 Aspirin E.C. [Ecotrin] 81 mg PO DAILY@0800 07/16/17 Cholecalciferol (Vitamin D3) [Vitamin D3] 2,000 unit PO DAILY 07/16/17 Cranberry 400 mg PO DAILY 07/16/17 clonidine HCl 0.1 mg tablet 0.1 mg PO QHS 11/27/20 Apixaban [Eliquis] 2.5 mg PO BID #20 tab 01/18/21 Dexamethasone [Decadron] 6 mg PO DAILY 5 Days tab 12/09/20 Following Prescriptions Were Given to Patient: Dexamethasone [Decadron] 6 mg PO DAILY 5 Days tab Prescription Printed Apixaban [Eliquis] 2.5 mg PO BID #20 tab Transmission Status: Received by [facility] Primary Care Physician: Ned Maynard MD [Primary Care Provider] - Please follow up with your Primary Care Physician in: 1-2 weeks. Disposition: Home Minutes spent on discharge:: 32 Patient Condition:: Stable Medical Necessity - Tobacco Use Smoking Status: Never smoker Tobacco Use: Non-smoker Meaningful Use Info Meaningful Use Diagnoses (Choose all that apply): None applicable Inpatient E&M: 707[address] [facility]
--- NOTE | 2020-12-10 14:37 | CASEMGMT ---
[facility] CM DC PHONE CALL DC DATE: 12/09/20 DC DISPOSITION: Home DC DIAGNOSIS: SARS COVID 2 Attempted call to phone. No answer and no messaging with name identifier. Molly GILBERT RN ACM
== END 2020-12-09 13:30 | disposition home or self-care (01) | DRG 871 ==
LOC: ED 18:46 → MS2 19:12
PROVIDERS: Internal Medicine; Admitting Provider Family Medicine; Emergency Provider Emergency Medicine; PCP Family Medicine; Visit Provider Hospitalist
DX: A41.89 Other specified sepsis (principal); J12.82 Pneumonia due to coronavirus disease 2019; U07.1 COVID-19; R65.20 Severe sepsis without septic shock; E87.6 Hypokalemia; R09.02 Hypoxemia; R30.0 Dysuria; N18.30 Chronic kidney disease, stage 3 unspecified; I12.9 Hypertensive chronic kidney disease with stage 1 through stage 4 chronic kidney disease, or unspecified chronic kidney disease; Z87.891 Personal history of nicotine dependence; Z86.711 Personal history of pulmonary embolism; E66.9 Obesity, unspecified; Z68.35 Body mass index [BMI] 35.0-35.9, adult
CPT/HCPCS: 36415; 71045; 71275; 80048; 80053; 80076; 81001; 82728; 83605; 83615; 83735; 83880; 84145; 84484; 85025; 85027; 85379; 85610; 85730; 86140; 87040; 87086; 87088; 87449; 87633; 87641; 93005; 97161; 97802; 99251; 99285; J7030; J7050; Q9967; A4216; G0463; J2405

== ENCOUNTER → 2021-07-23 16:09 | Outpatient (CLI) | payer OTHER, SELFPAY ==
--- NOTE | 2021-07-23 16:17 | RAD_ITS ---
STUDY: X-RAY CHEST REASON FOR EXAM: Female, 61 years old. PRE OP TECHNIQUE: Frontal and lateral views COMPARISON: 12/05/2020 FINDINGS: The lungs are clear and expanded. There is no demonstrated pleural abnormality. Normal size heart. Normal mediastinum and franc. Normal visualized pulmonary arteries. Normal visualized aortic arch and descending thoracic aorta. Normal visualized thoracic spine. Normal visualized ribs, clavicles, and shoulders. There is no demonstrated abnormality of the visualized soft tissue structures of the upper abdomen. RAD/Chest PA and Lateral IMPRESSION: Normal x-ray examination of the chest. Electronically Signed: Tayo Harman DO at 16:51 EDT Tel [phone], Service support ,
--- NOTE | 2021-07-23 16:40 | EKG12_ITS ---
Test Reason : PRE-OP Blood Pressure : / mmHG Vent. Rate : 073 BPM Atrial Rate : 073 BPM P-R Int : 146 ms QRS Dur : 088 ms QT Int : 404 ms P-R-T Axes : 032 -08 039 degrees QTc Int : 445 ms Normal sinus rhythm Poor R wave progression Confirmed by KANDICE BIRD, LATASHA ([id number]), editor greeting card ZULEMA AGUIRRE ([id number]) on 07/24/2021 9:13:45 AM Referred By: Ramsey Easton Confirmed By:LATASHA WOODSON MD
--- NOTE | 2021-07-23 16:40 | CT_ITS ---
STUDY: CT LEFT LOWER EXTREMITY WITHOUT CONTRAST REASON FOR EXAM: Left knee osteoarthritis, varus deformity of the left knee, surgical planning. TECHNIQUE: Transaxial CT imaging of the lower extremity was performed. Coronal and sagittal images were reformatted. Individualized dose optimization techniques were used for this CT. COMPARISON: Radiographs 07/11/2019. FINDINGS: Knee: There are prominent marginal osteophytes and joint space loss of the medial femorotibial compartment (coronal reconstructions 25-31) and a subchondral cyst in the posterior aspect of the medial tibial plateau (sagittal reconstruction 34) measuring 1.3 cm in length. There are marginal osteophytes and mild joint space narrowing of the lateral femorotibial compartment (coronal reconstruction 34). There are marginal osteophytes and severe joint space narrowing of the lateral aspect of the patellofemoral articulation (axial image 211). There is lateral tilt of the patella (axial image 209). Normal proximal tibiofibular articulation. There is a small joint effusion. The quadriceps tendon is grossly normal. The patellar tendon is grossly normal. Normal Hoffa''s fat pad. There is an intra-articular body in the suprapatellar recess (sagittal reconstruction 42) measuring 1.6 cm in length and a smaller anterior intra-articular body (sagittal reconstruction 45). Hip: There is preservation of the joint space of the left hip. Ankle: There is an osteochondral lesion of the medial aspect of the superior talar dome (sagittal reconstructions 21, 22). Normal posterior subtalar articulation. CT/Extremity Lower without Contra IMPRESSION: Tricompartmental osteoarthritis of the left knee with intra-articular bodies. Electronically Signed: Herberth Lucas MD at 11:12 EDT Tel , Service support ,
[2021-07-23 17:16] LABS: Absolute Lymphocyte Count 3.18 X10^3/uL (0.83-4.51); Basophil# 0.05 X10^3/uL; Basophil% 0.7 % (0-1); Eosinophil# 0.11 X10^3/uL; Eosinophils% 1.6 % (0-5); Hematocrit 44.1 % (37-47); Hemoglobin 14.1 g/dL (12.0-15.0); Lymphocyte # 3.18 X10^3/ul (0.83-4.51); Lymphocyte % 45.5 % (19-41); Mean Corpuscular Hgb 28.5 pg (27.0-32.0); Mean Corpuscular Volume 89.3 fL (81-99); Monocyte# 0.59 X10^3/uL; Monocyte% 8.4 % (0-10); NRBC Flagged by Analyzer 0 % (0-5); Neutrophil # 3.04 X10^3/uL (2.7-7.7); Neutrophil % 43.5 % (47-70); Platelet Count 319 K/mm3 (150-450); RBC Distribution Width CV 13.5 % (11.6-14.6); RBC Distribution Width SD 43.8 fl (35.1-43.9); Red Blood Count 4.94 M/mm3 (4.2-5.4)
[2021-07-23 17:40] LABS: Anion Gap 7 (5-15); BUN 24 mg/dL (7-18); BUN/Creat Ratio 34.8 RATIO (10-20); Calcium,Total 8.9 mg/dL (8.5-10.1); Chloride 106 mmol/L (98-107); Creatinine, Serum 0.69 mg/dL (0.55-1.02); EST Glomerular Filtration Rate 92 mL/min (>60); Est Glom Filt Rate - Afr Amer 112 mL/min (>60); Glucose 78 mg/dL (74-106); Potassium 3.7 mmol/L (3.5-5.1); Sodium Level 139 mmol/L (136-145)
== END ==
PROVIDERS: Physician Assistant Surgical; PCP Family Medicine; Referring Provider Specialist; Visit Provider Specialist
DX: Z01.818 Encounter for other preprocedural examination (principal); M21.162 Varus deformity, not elsewhere classified, left knee
CPT/HCPCS: 36415; 71046; 73700; 80048; 85025; 93005